=== PATIENT | female | born 1945 | race Caucasian/White ===

== ENCOUNTER 2018-05-07 07:01 | Inpatient (IN) | payer MEDICARE ==
[~2018-05-07] VITALS: Ht 165.1 cm; Wt 68.9 kg
[~2018-05-07 07:01] MED LIST: ADVAIR DISK1 INH; AMITRIPTYLIN100 MG PO; AMLODIPINE5 MG PO; ASPIRIN LOW DOS81 M2 PO; ATORVASTATIN CA20 MG PO; BACTRIM DS1 TAB PO; BUSPIRONE10 MG PO; CIPROFLOXACN250 MG PO; COLACE100 MG PO; DILAUDID 2MG2 MG/TA1 PO; FLORASTOR250 M1 PO; GABAPENTIN100 MG PO; HYDROCO/APAP1 TA9 PO; LIPITOR20 MG PO; LISI20TA5 PO; LISINOPRIL10 M1 PO; LISINOPRIL10 MG PO; LISINOPRIL20 M1 PO; MACROBID100 MG PO; NITROFUR MAC50 MG PO; NYSTATIN100000 M1 PO; NYSTATIN100000 M4 TOP; OMEPRAZOLE20 MG PO; ONE-A-DAY PO; PERCOCET 5/321 COMBO PO; PROAIR HFA IN; PROBIOTI3 PO; PROZAC10 MG PO; SPIRIVA IN; SPIRONOLACT25 MG PO; TAMSULOSIN0.4 MG PO; TIZANIDINE4 MG PO; XANAX XR0.5 MG PO; ZESTRIL10 MG PO
[2018-05-07 07:29] LABS: HEMATOCRIT 42.4 % (37.0-47.0); HEMOGLOBIN 13.8 g/dl (12.0-16.0); IMMATURE GRANULOCYTES 0.3 % (0.0-1.0); MEAN CELL VOLUME 89.1 fL CALC (80.0-100.0); MEAN CORPUSCULAR HGB CONC 32.5 g/L CALC (32.0-36.0); NEUT# 3.54 thou/uL (2.00-7.15); RED BLOOD COUNT 4.76 mill/uL (4.20-5.60); RED CELL DISTRI WIDTH 13.9 % (11.5-15.5)
[2018-05-07 07:44] LABS: ALBUMIN 3.6 g/dL (3.2-5.0); ALKALINE PHOSPHATASE 89 u/l (38-126); ANION GAP 10 (6-22 (CALC)); BILIRUBIN, TOTAL 0.5 mg/dL (0.0-1.4); BUN 15 mg/dL (8-23); BUN/CREATININE RATIO 16 (12-20 (CALC)); CARBON DIOXIDE 24 mmol/l (22-30); CHLORIDE 102 mmol/l (95-108); CREATININE 0.9 mg/dL (0.5-1.0); GFR > 60 ML/MIN (>=60 (CALC)); GFR FOR AFR.AMER. > 60 ML/MIN (>=60 (CALC)); POTASSIUM 4.3 mmol/l (3.5-5.1); SGOT/AST 19 u/l (9-36); SGPT/ALT 26 u/l (11-66); SODIUM 131 mmol/l (137-146); TOTAL PROTEIN 6.9 g/dL (6.3-8.2)
[2018-05-07 07:56] LABS: ACT PARTIAL THROMBO TIME 25.5 SECONDS (20.0-32.5)
[2018-05-07] MEDS ORDERED: AMLODIPINE5 MG PO (08:01)
[2018-05-07] MEDS ORDERED: FUROSEMIDE20 MG PO (08:01)
[2018-05-07 13:07] VITALS: BP 126/59
[2018-05-07 15:22] VITALS: BP 101/55
[2018-05-07 19:00] VITALS: BP 114/60; BP 159/91
[2018-05-08] VITALS (13 sets, daily range): BP systolic 104–152; BP diastolic 42–62
[2018-05-08 03:54] LABS: URINE BILIRUBIN - DIPSTICK NEGATIVE (NEGATIVE); URINE BLOOD DIPSTICK SMALL (NEGATIVE); URINE CLARITY TURBID; URINE COLOR YELLOW; URINE GLUCOSE - DIPSTICK NEGATIVE (NEGATIVE); URINE KETONE NEGATIVE (NEGATIVE); URINE LEUK ESTERASE MODERATE (NEGATIVE); URINE NITRITE - DIPSTICK POSITIVE (Negative); URINE PROTEIN - DIPSTICK NEGATIVE (NEG-TRACE); URINE SPECIFIC GRAVITY 1.015; URINE UROBILINOGEN - DIPSTICK 0.2 E.U./dL (0.2)
[2018-05-08 03:59] LABS: BARBITURATES NEGATIVE (NEGATIVE); COCAINE NEGATIVE (NEGATIVE); METHADONE NEGATIVE (NEGATIVE); OXCYCODONE NEGATIVE (NEGATIVE); TETRAHYDROCANNABIONOL NEGATIVE (NEGATIVE); TRICYLIC ANTIDEPRESSANTS NEGATIVE (NEGATIVE)
[2018-05-08 04:00] LABS: URINE SQUAMOUS EPITHELIAL CELL FEW EPI/hpf (0-FEW); URINE WBC >100 WBC/hpf (0-5)
[2018-05-08 04:01] LABS: URINE BACTERIA MODERATE hpf
[2018-05-08 05:09] LABS: HEMATOCRIT 35.3 % (37.0-47.0); HEMOGLOBIN 11.3 g/dl (12.0-16.0); IMMATURE GRANULOCYTES 0.4 % (0.0-1.0); MEAN CELL VOLUME 91.7 fL CALC (80.0-100.0); MEAN CORPUSCULAR HGB 29.4 pG CALC (26.0-32.0); NEUT# 4.83 thou/uL (2.00-7.15); RED BLOOD COUNT 3.85 mill/uL (4.20-5.60)
[2018-05-08 05:23] LABS: ANION GAP 8 (6-22 (CALC)); BUN 15 mg/dL (8-23); BUN/CREATININE RATIO 17 (12-20 (CALC)); CARBON DIOXIDE 26 mmol/l (22-30); CHLORIDE 99 mmol/l (95-108); CREATININE 0.9 mg/dL (0.5-1.0); GFR > 60 ML/MIN (>=60 (CALC)); GFR FOR AFR.AMER. > 60 ML/MIN (>=60 (CALC)); MAGNESIUM 1.8 mg/dL (1.6-2.3); POTASSIUM 4.5 mmol/l (3.5-5.1); SODIUM 128 mmol/l (137-146)
[2018-05-09 03:54] VITALS: BP 104/49
[2018-05-09 05:31] LABS: HEMATOCRIT 29.5 % (37.0-47.0); MEAN CELL VOLUME 92.8 fL CALC (80.0-100.0); MEAN CORPUSCULAR HGB 28.9 pG CALC (26.0-32.0); MEAN CORPUSCULAR HGB CONC 31.2 g/L CALC (32.0-36.0); RED BLOOD COUNT 3.18 mill/uL (4.20-5.60); RED CELL DISTRI WIDTH 13.9 % (11.5-15.5)
[2018-05-09 05:39] LABS: HEMOGLOBIN 9.2 g/dl (12.0-16.0)
[2018-05-09 05:43] LABS: ANION GAP 9 (6-22 (CALC)); BUN 11 mg/dL (8-23); BUN/CREATININE RATIO 14 (12-20 (CALC)); CARBON DIOXIDE 26 mmol/l (22-30); CHLORIDE 99 mmol/l (95-108); CREATININE 0.8 mg/dL (0.5-1.0); GFR > 60 ML/MIN (>=60 (CALC)); GFR FOR AFR.AMER. > 60 ML/MIN (>=60 (CALC)); MAGNESIUM 1.6 mg/dL (1.6-2.3); POTASSIUM 4.6 mmol/l (3.5-5.1); SODIUM 129 mmol/l (137-146)
[2018-05-09 07:48] VITALS: BP 142/60
[2018-05-09 12:00] VITALS: BP 147/71
[2018-05-09 15:57] VITALS: BP 129/69
[2018-05-09 19:00] VITALS: BP 116/65
[2018-05-09 23:54] VITALS: BP 112/56
[2018-05-10 04:41] VITALS: BP 134/71
[2018-05-10 06:12] LABS: HEMATOCRIT 26.8 % (37.0-47.0); HEMOGLOBIN 8.5 g/dl (12.0-16.0); MEAN CELL VOLUME 92.4 fL CALC (80.0-100.0); MEAN CORPUSCULAR HGB 29.3 pG CALC (26.0-32.0); MEAN CORPUSCULAR HGB CONC 31.7 g/L CALC (32.0-36.0); RED BLOOD COUNT 2.9 mill/uL (4.20-5.60); RED CELL DISTRI WIDTH 14.1 % (11.5-15.5)
[2018-05-10 06:35] LABS: ANION GAP 7 (6-22 (CALC)); BUN 8 mg/dL (8-23); BUN/CREATININE RATIO 9 (12-20 (CALC)); CARBON DIOXIDE 29 mmol/l (22-30); CHLORIDE 100 mmol/l (95-108); CREATININE 0.9 mg/dL (0.5-1.0); GFR > 60 ML/MIN (>=60 (CALC)); GFR FOR AFR.AMER. > 60 ML/MIN (>=60 (CALC)); MAGNESIUM 1.8 mg/dL (1.6-2.3); POTASSIUM 4.7 mmol/l (3.5-5.1); SODIUM 131 mmol/l (137-146)
[2018-05-10 09:10] VITALS: BP 108/66
[2018-05-10 10:48] VITALS: BP 100/60
[2018-05-10 14:50] VITALS: BP 151/80
[2018-05-10 19:45] VITALS: BP 152/64
[2018-05-11 00:37] VITALS: BP 125/60
[2018-05-11 03:45] VITALS: BP 144/65
[2018-05-11 06:02] LABS: HEMOGLOBIN 9.2 g/dl (12.0-16.0); MEAN CELL VOLUME 92.7 fL CALC (80.0-100.0); MEAN CORPUSCULAR HGB 29.4 pG CALC (26.0-32.0); MEAN CORPUSCULAR HGB CONC 31.7 g/L CALC (32.0-36.0); RED BLOOD COUNT 3.13 mill/uL (4.20-5.60); RED CELL DISTRI WIDTH 14.5 % (11.5-15.5)
[2018-05-11 06:21] LABS: ANION GAP 9 (6-22 (CALC)); BUN 8 mg/dL (8-23); BUN/CREATININE RATIO 10 (12-20 (CALC)); CARBON DIOXIDE 31 mmol/l (22-30); CHLORIDE 99 mmol/l (95-108); CREATININE 0.8 mg/dL (0.5-1.0); GFR > 60 ML/MIN (>=60 (CALC)); GFR FOR AFR.AMER. > 60 ML/MIN (>=60 (CALC)); POTASSIUM 4.6 mmol/l (3.5-5.1); SODIUM 134 mmol/l (137-146)
[2018-05-11] MEDS ORDERED: IPRATROPIU0.5 MG/3 M IN (08:23)
[2018-05-11] MEDS ORDERED: CIPROFLOXACIN500 M1 PO (08:23)
[2018-05-11] MEDS ORDERED: GLYCOLAX3350 N1 PO (08:23)
[2018-05-11] MEDS ORDERED: ASPIRIN EC325 MG PO (08:23)
[2018-05-11] MEDS ORDERED: SURFAK240 MG/CAP PO (08:23)
[2018-05-11] MEDS ORDERED: PERCOCET 10/31 COMBO PO (08:23)
[2018-05-11 09:23] VITALS: BP 150/65
[2018-05-11 11:09] VITALS: BP 131/69
== END 2018-05-11 13:18 | DRG 481 ==
LOC: ED 07:01 → ED-I 07:54 → ED 07:54 → ED-I 09:00 → ED 10:13 → MS2 10:14
PROVIDERS: Emergency Medicine; Nurse Practitioner Family; ADMIT Internal Medicine; ATTEND Internal Medicine
PROC: 0T9B70Z Drainage of Bladder with Drainage Device, Via Natural or Artificial Opening (ICD-10-PCS; principal; 2018-05-07)
PROC: 0QS606Z Reposition Right Upper Femur with Intramedullary Internal Fixation Device, Open Approach (ICD-10-PCS; 2018-05-08)
DX: S72.141A Displaced intertrochanteric fracture of right femur, initial encounter for closed fracture (principal); E87.1 Hypo-osmolality and hyponatremia; N39.0 Urinary tract infection, site not specified; J44.9 Chronic obstructive pulmonary disease, unspecified; K21.9 Gastro-esophageal reflux disease without esophagitis; F17.210 Nicotine dependence, cigarettes, uncomplicated; I73.9 Peripheral vascular disease, unspecified; I12.9 Hypertensive chronic kidney disease with stage 1 through stage 4 chronic kidney disease, or unspecified chronic kidney disease; N18.3 Chronic kidney disease, stage 3 (moderate); N31.9 Neuromuscular dysfunction of bladder, unspecified; R32 Unspecified urinary incontinence; K59.00 Constipation, unspecified; D64.9 Anemia, unspecified; R00.1 Bradycardia, unspecified; R15.9 Full incontinence of feces; M81.0 Age-related osteoporosis without current pathological fracture; B96.1 Klebsiella pneumoniae [K. pneumoniae] as the cause of diseases classified elsewhere; W18.39XA Other fall on same level, initial encounter; Y92.009 Unspecified place in unspecified non-institutional (private) residence as the place of occurrence of the external cause; Z72.89 Other problems related to lifestyle; Z91.81 History of falling; Z87.440 Personal history of urinary (tract) infections
CPT/HCPCS: J1756; S0164

== ENCOUNTER 2019-12-20 | Emergency (ER) | payer MEDICARE ==
[~2019-12-20] MED LIST changes: +ASPIRIN EC325 MG PO; +CIPROFLOXACIN500 M1 PO; +FUROSEMIDE20 MG PO; +GLYCOLAX3350 N1 PO; +IPRATROPIU0.5 MG/3 M IN; +NORVASC5 M1 PO; +PERCOCET 10/31 COMBO PO; +SURFAK240 MG/CAP PO
[2019-12-20 07:17] LABS: HEMATOCRIT 45.3 % (37.0-47.0); IMMATURE GRANULOCYTES 0.3 % (0.0-5.0); MEAN CELL VOLUME 90.1 fL CALC (80.0-100.0); MEAN CORPUSCULAR HGB 29.8 pG CALC (26.0-32.0); MEAN CORPUSCULAR HGB CONC 33.1 g/L CALC (32.0-36.0); NEUT# 5.66 thou/uL (2.00-7.15); RED BLOOD COUNT 5.03 mill/uL (4.20-5.60); RED CELL DISTRI WIDTH 12.5 % (11.5-15.5)
[2019-12-20 07:36] LABS: ALKALINE PHOSPHATASE 72 u/l (38-126); BILIRUBIN, TOTAL 0.6 mg/dL (0.0-1.4); BUN 13 mg/dL (8-23); BUN/CREATININE RATIO 14 (12-20 (CALC)); CARBON DIOXIDE 28 mmol/l (22-30); CHLORIDE 88 mmol/l (95-108); GFR 54 ML/MIN (>=60 (CALC)); GFR FOR AFR.AMER. > 60 ML/MIN (>=60 (CALC)); POTASSIUM 3.7 mmol/l (3.5-5.1); SGOT/AST 31 u/l (9-36); TOTAL PROTEIN 8.2 g/dL (6.3-8.2)
[2019-12-20] MEDS ORDERED: HYDROCHLOROT25 MG PO (07:38)
[2019-12-20] MEDS ORDERED: SLEEP MEDICATION (07:39)
[2019-12-20 07:48] LABS: MYOGLOBIN 97 ng/mL (0 - 62)
[2019-12-20 07:51] LABS: ALBUMIN 4.6 g/dL (3.2-5.0); ANION GAP 15 (6-22 (CALC)); SODIUM 127 mmol/l (137-146)
== END 2019-12-20 09:26 ==
PROVIDERS: Emergency Medicine
DX: I63.9 Cerebral infarction, unspecified (principal); R47.1 Dysarthria and anarthria; R29.810 Facial weakness; R29.703 NIHSS score 3; S80.812A Abrasion, left lower leg, initial encounter; J44.9 Chronic obstructive pulmonary disease, unspecified; I10 Essential (primary) hypertension; F17.210 Nicotine dependence, cigarettes, uncomplicated; W10.9XXA Fall (on) (from) unspecified stairs and steps, initial encounter
CPT/HCPCS: Q9967

== ENCOUNTER 2020-01-21 19:23 | Inpatient (IN) | payer MEDICARE ==
[~2020-01-21] VITALS: Ht 165.1 cm; Wt 68.3 kg
[~2020-01-21 19:23] MED LIST changes: +HYDROCHLOROT25 MG PO; +SLEEP MEDICATION
--- NOTE | 2020-01-21 19:44 | NUR ---
AMBULATED TO ROOM
--- NOTE | 2020-01-21 20:00 | NUR ---
Reassessment of patient completed. No distress noted. Call fernandez within reach. Denies any needs at this time. Will continue to monitor.
--- NOTE | 2020-01-21 20:25 | NUR ---
Pt to radiology via stretcher
[2020-01-21 20:33] LABS: HEMATOCRIT 39.8 % (37.0-47.0); HEMOGLOBIN 13.4 g/dl (12.0-16.0); IMMATURE GRANULOCYTES 0.5 % (0.0-5.0); MEAN CELL VOLUME 88.1 fL CALC (80.0-100.0); MEAN CORPUSCULAR HGB 29.6 pG CALC (26.0-32.0); MEAN CORPUSCULAR HGB CONC 33.7 g/L CALC (32.0-36.0); NEUT# 6.29 thou/uL (2.00-7.15); RED BLOOD COUNT 4.52 mill/uL (4.20-5.60); RED CELL DISTRI WIDTH 13.1 % (11.5-15.5)
--- NOTE | 2020-01-21 20:39 | NUR ---
Pt returned to room # 4 from radiology via stretcher. No distress noted. Explained wait time for results. Showed understanding. Call fernandez within reach. Denies any needs at this time.
[2020-01-21 20:58] LABS: ALBUMIN 4.1 g/dL (3.2-5.0); BILIRUBIN, TOTAL 0.4 mg/dL (0.0-1.4); CREATININE 1.1 mg/dL (0.5-1.0); POTASSIUM 3.6 mmol/l (3.5-5.1); TOTAL PROTEIN 6.9 g/dL (6.3-8.2)
[2020-01-21] MEDS ORDERED: ALENDRONATE SOD70 MG PO (21:07)
[2020-01-21] MEDS ORDERED: ATORVASTATIN CA10 MG PO (21:07)
[2020-01-21] MEDS ORDERED: LISINOPRIL40 MG PO (21:08)
[2020-01-21] MEDS ORDERED: CLOPIDOGREL75 MG PO (21:08)
[2020-01-21] MEDS ORDERED: DESYREL50 MG PO (21:09)
--- NOTE | 2020-01-21 21:10 | NUR ---
Pt resting on stretcher with eyes open. Advised of need for urine specimen. Showed understanding. Call fernandez within reach
--- NOTE | 2020-01-21 21:15 | NUR ---
Family back to bedside
--- NOTE | 2020-01-21 22:00 | NUR ---
Bedside report given to BRIDGER Pretty. Care relinquished at this time.
--- NOTE | 2020-01-21 22:03 | NUR ---
to bsc with no results
--- NOTE | 2020-01-21 23:18 | NUR ---
CALLED MS FOR REPORT. TO CALL BACK FOR REPORT
--- NOTE | 2020-01-21 23:41 | NUR ---
CALLED FOR REPORT-TO CALL BACK
--- NOTE | 2020-01-21 23:48 | NUR ---
TO MS VIA W/C
--- NOTE | 2020-01-22 | NUR ---
PT ARRIVED TO THE FLOOR VIA WC ACCOMPANIED BY ED NURSE. PT APPEARS TO BE IN STABLE CONDITION UPON ARRIVING TO THE MED SURG UNIT. AIDE IS IN W/PT AT THIS TIME OBTAINING V/S AND ORIENTING PT TO ROOM. WILL FOLLOW-UP WITH ADMISSION QUESITONS AND ASSESSMENT.
[2020-01-22 00:04] VITALS: BP 157/72
--- NOTE | 2020-01-22 00:30 | NUR ---
PT ASSESSMENT AND ADMISSION COMPLETED AT THIS TIME. PT PROVIDED EXTRA PILLOW AND ICEWATER, DENIES NEED FOR SNACK OR ANY OTHER COMFORT MEASURE OR NEEDS. JEREMIAH PAIN AT THIS TIME. PT DOES HAVE BRUISING AND EDEMA TO L.EYE AREA. SHE ALSO REPORTS PREVIOUS "MINI STROKE ABOUT A MONTH AGO" SHE REPORTS THAT SHE WAS HERE AT [facility] AND SENT TO [facility] FOR FURTHER TREATMENT, BUT THAT SHE HAS FULLY RECOVERED AND DOES NOT NOTICE ANY RESIDUAL AFFECTS OF THE STROKE. UPON ASSESSMENT AUDITOR INTERNAL ARE EQUAL, NEURO'S INTACT, NO VISIBLE WEAKNESS TO EXTREMETIES AND FACIAL FEATURES ARE SYMETRIC IN MOVEMENT. PT LOCX4. SHE DOES REPORT BEING INCONTINENT OF URINE AND STOOL AND SAYS THAT SHE WEARS A BREIF AND THAT HER DAUGHTER IS BRINGING HER MORE IN THE MORNING. BED ALARM PLACED ON FOR SAFETY MEASURES AND DOOR LEFT OPEN.
--- NOTE | 2020-01-22 03:00 | NUR ---
PT UP TO BSC AND BACK TO BED. UA COLLECTED AND TAKEN TO LAB BY AZIZA. PT DENIES ANY NEEDS, BED ALARM PLACED ON.
[2020-01-22 03:08] LABS: URINE BILIRUBIN - DIPSTICK NEGATIVE (NEGATIVE); URINE BLOOD DIPSTICK NEGATIVE (NEGATIVE); URINE COLOR YELLOW; URINE GLUCOSE - DIPSTICK NEGATIVE (NEGATIVE); URINE KETONE NEGATIVE (NEGATIVE); URINE LEUK ESTERASE NEGATIVE (NEGATIVE); URINE NITRITE - DIPSTICK NEGATIVE (Negative); URINE PROTEIN - DIPSTICK NEGATIVE (NEG-TRACE); URINE UROBILINOGEN - DIPSTICK 0.2 E.U./dL (0.2)
[2020-01-22 03:34] LABS: BARBITURATES NEGATIVE (NEGATIVE); COCAINE NEGATIVE (NEGATIVE); METHADONE NEGATIVE (NEGATIVE); OXCYCODONE NEGATIVE (NEGATIVE); TETRAHYDROCANNABIONOL NEGATIVE (NEGATIVE); TRICYLIC ANTIDEPRESSANTS NEGATIVE (NEGATIVE)
[2020-01-22 04:00] VITALS: BP 122/63
[2020-01-22 05:40] LABS: ANION GAP 12 (6-22 (CALC)); BUN 14 mg/dL (8-23); BUN/CREATININE RATIO 16 (12-20 (CALC)); CARBON DIOXIDE 26 mmol/l (22-30); CHLORIDE 88 mmol/l (95-108); CREATININE 0.9 mg/dL (0.5-1.0); GFR > 60 ML/MIN (>=60 (CALC)); GFR FOR AFR.AMER. > 60 ML/MIN (>=60 (CALC)); POTASSIUM 3.9 mmol/l (3.5-5.1); SODIUM 122 mmol/l (137-146)
--- NOTE | 2020-01-22 06:00 | NUR ---
IVF REPLENISHED. PT WAS SLEEPING, REPORTS FEELING "TIRED." PT DENIES ANY OTHER NEEDS AT THIS TIME. CALL LIGHT IN REACH AND PT ENCOURAGED TO CALL.
[2020-01-22 08:00] VITALS: BP 151/70
--- NOTE | 2020-01-22 09:00 | NUR ---
PT SEEN AWAKE, ALERT, ORIENTED X 3. LEFT SIDE OF FACE SEEN TO BE ECCHYMOTIC PER RECENT FALL. LUNGS CLEAR, RA. NO COMPLAINT OF PAIN OR OTHERWISE. PT TO BSC WITH ASSIST NEEDED.
--- NOTE | 2020-01-22 13:00 | NUR ---
PT DENIES SHAKINESS SEEN IN ALCOHOL WITHDRAWAL, RESTS IN THE BED IN NO ACUTE DISTRESS. PT HAS CALLED APPROPRIATELY FOR BSC.
[2020-01-22 15:00] VITALS: BP 121/59
--- NOTE | 2020-01-22 16:43 | NUR ---
PT REMAINS AT REST IN THE BED, NO CHANGE IN STATUS. PT DENIES ANY SHAKINESS OR EVIDENCE OF ETOH WITHDRAWAL, SAYS THAT SHE IS BORED. BANANA BAG CONTINUES INFUSING ORDERED.
--- NOTE | 2020-01-22 18:55 | NUR ---
REPORT RECEIVED FROM BRIDGER BARRAZA. PT RESTING IN BED. NO S/S OF DISTRESS AT THIS TIME. WILL CONTINUE TO MONITOR.
[2020-01-22 19:20] VITALS: BP 147/68
--- NOTE | 2020-01-22 22:02 | NUR ---
PT RESTING IN BED. ALERT AND ORIENTED. RESPIRATIONS EVEN AND UNLABORED. WHEEZES NOTED THROUGH OUT LUNGS. PEDAL PULSES STRONG. PT DENIES ANY NEEDS AT THIS TIME. SAFETY PRECAUTIONS IN PLACE. WILL CONTINUE TO MONITOR.
--- NOTE | 2020-01-23 | NUR ---
PT RESTING IN BED. NO S/S OF DISTRESS AT THIS TIME. WILL CONTINUE TO MONITOR.
[2020-01-23 00:14] VITALS: BP 143/86
--- NOTE | 2020-01-23 04:09 | NUR ---
PT RESTING IN BED NO S/S OF DISTRESS AT THIS TIME
[2020-01-23 04:10] VITALS: BP 113/75
[2020-01-23 05:22] LABS: HEMATOCRIT 35.1 % (37.0-47.0); HEMOGLOBIN 11.6 g/dl (12.0-16.0); MEAN CELL VOLUME 91.2 fL CALC (80.0-100.0); MEAN CORPUSCULAR HGB 30.1 pG CALC (26.0-32.0); RED BLOOD COUNT 3.85 mill/uL (4.20-5.60); RED CELL DISTRI WIDTH 13.2 % (11.5-15.5)
[2020-01-23 05:44] LABS: BUN 9 mg/dL (8-23); BUN/CREATININE RATIO 12 (12-20 (CALC)); CARBON DIOXIDE 24 mmol/l (22-30); CREATININE 0.8 mg/dL (0.5-1.0); GFR > 60 ML/MIN (>=60 (CALC)); GFR FOR AFR.AMER. > 60 ML/MIN (>=60 (CALC)); MAGNESIUM 1.7 mg/dL (1.6-2.3); POTASSIUM 3.7 mmol/l (3.5-5.1); SODIUM 128 mmol/l (137-146)
[2020-01-23 05:45] LABS: ALBUMIN 2.9 g/dL (3.2-5.0); ANION GAP 6 (6-22 (CALC)); CHLORIDE 102 mmol/l (95-108)
[2020-01-23 07:51] VITALS: BP 155/73
--- NOTE | 2020-01-23 09:00 | NUR ---
PT AWAKE, ALERT, ORIENTED X 3. LUNGS CLEAR, RA. PT CALLS TO USE BSC APPROPRIATELY. NO EVIDENCE OF WITHDRAWAL SYMPTOMS. LUNGS CLEAR, RA.
[2020-01-23 11:45] VITALS: BP 156/65
--- NOTE | 2020-01-23 13:00 | NUR ---
PT CONTINUES TO CALL APPROPRIATELY TO USE BSC, SEEN TO TRANSFER WITH STANDBY ASSIST. PT SEEN BY DR RESTREPO, ANTICIPATES DISCHARGE TOMORROW.
[2020-01-23 16:09] VITALS: BP 134/82
--- NOTE | 2020-01-23 16:31 | NUR ---
PT RESTING IN THE BED, NO DISTRESS NOTED.
[2020-01-23 19:03] VITALS: BP 142/62
--- NOTE | 2020-01-23 19:05 | NUR ---
REPORT FROM CHRISTI RN. PT SITTING UP IN BED. ALERT AND ORIENTED. PT DENIES ANY PAIN OR DISCOMFORT. NO APPARENT DISTRESS NOTED. DISCUSSED POC. PT VERBALIZED UNDERSTANDING. MILKING MACHINE TECHNICIAN IN PLACE. IV SITE APPEARS HEALTHY. CALL LIGHT WITHIN REACH. WILL CONTINUE TO MONITOR.
--- NOTE | 2020-01-23 23:11 | NUR ---
PT RESTING IN BED WITH EYES CLOSED. NO APPARENT DISTRESS NOTED. IV FLUIDS INFUSING WITHOUT DIFFICULTY. CALL LIGHT WITHIN REACH. WILL CONTINUE TO MONITOR.
[2020-01-24 00:08] VITALS: BP 142/70
--- NOTE | 2020-01-24 02:49 | NUR ---
ASSISTED PT UP TO BS. PT VOIDED WITHOUT DIFFICULTY. PT DENIES ANY PAIN OR DISCOMFORT. ASSISTED BACK TO BED. CALL LIGHT WITHIN REACH. WILL CONTINUE TO MONITOR.
[2020-01-24 04:27] VITALS: BP 148/69
[2020-01-24 05:43] LABS: ALBUMIN 2.9 g/dL (3.2-5.0); BUN 10 mg/dL (8-23); CARBON DIOXIDE 25 mmol/l (22-30); CHLORIDE 103 mmol/l (95-108); CREATININE 0.7 mg/dL (0.5-1.0); GFR > 60 ML/MIN (>=60 (CALC)); GFR FOR AFR.AMER. > 60 ML/MIN (>=60 (CALC)); POTASSIUM 3.6 mmol/l (3.5-5.1); SODIUM 132 mmol/l (137-146)
[2020-01-24 07:59] VITALS: BP 167/70
--- NOTE | 2020-01-24 08:00 | NUR ---
PATIENT A/OX4, NO C/O PAIN, NO S/S RESP DISTRESS, PATIENT ON ROOM AIR, PATIENT SKIN IS INTACT, PATIENT HAS BRUISE TO ENTIRE LEFT SIDE, NEURO ASSESSMENT UNREMARKABLE, PATIENT CIWA 0, PATIENT HEART RHYTHM SINUS LUZMARIA, WILL CONTINUE TO MONITOR PATIENT, CALL LIGHT WITHIN REACH
[2020-01-24] MEDS ORDERED: LIBRIUM25 M1 PO (10:08)
[2020-01-24] MEDS ORDERED: COZAAR100 MG PO (10:08)
[2020-01-24 11:04] VITALS: BP 166/83
--- NOTE | 2020-01-24 11:49 | NUR ---
PATIENT A/OX4, NO S/S RESP DISTRESS, PATIENT ON ROOM AIR, NO C/O PAIN, PATIENT SKIN IS INTACT, BRUISE ON ENTIRE LEFT SIDE OF FACE S/P FALL AT HOME, PATIENT IS AN STAND BY ASSIST TO RESTROOM, PATIENT LAST BOWEL MOVEMENT IS 01/23/20, PATIENT NEURO ASSESSMENT UNREMARKABLE, CIWA IS 0, PATIENT DISCHARGED TO HOME, EDUCATED PATIENT ABOUT DISCHARGED INSTRUCTIONS PATIENT STATED SHE UNDERSTOOD TEACHING, PATIENT PROVIDED PRINTED HANDOUTS ABOUT NEW PRESCRITIONS AND DC INSTRUCTIONS, DC PATIENT IV, REMOVED PATIENT IV, PATIENT WAITING ON TRANSPORTATION
[2020-01-24 12:10] VITALS: BP 156/80
--- NOTE | 2020-01-24 12:28 | NUR ---
PATIENT A/OX4, NO S/S RESP DISTRESS, PATIENT ON ROOM AIR, PATIENT HAVE NO C/O PAIN, ALL PRESCRIPTIONS GIVEN TO PATIENT AND DC HANDOUTS GIVEN TO PATIENT, STAFF ASSISTED PATIENT OFF FLOOR VIA WHEELCHAIR, PATIENT ACCOMPANIED BY FAMILY MEMBER
== END 2020-01-24 12:20 | disposition home or self-care (01) | DRG 641 ==
LOC: ED 19:23 → ED-I 22:53 → ED 23:11 → MS2 23:12
PROVIDERS: Family Medicine; Nurse Practitioner Family; ADMIT Internal Medicine; ATTEND Internal Medicine
DX: E87.1 Hypo-osmolality and hyponatremia (principal); T50.2X5A Adverse effect of carbonic-anhydrase inhibitors, benzothiadiazides and other diuretics, initial encounter; F10.10 Alcohol abuse, uncomplicated; I12.9 Hypertensive chronic kidney disease with stage 1 through stage 4 chronic kidney disease, or unspecified chronic kidney disease; N18.3 Chronic kidney disease, stage 3 (moderate); S00.12XA Contusion of left eyelid and periocular area, initial encounter; S50.02XA Contusion of left elbow, initial encounter; J44.9 Chronic obstructive pulmonary disease, unspecified; I73.9 Peripheral vascular disease, unspecified; K21.9 Gastro-esophageal reflux disease without esophagitis; F17.210 Nicotine dependence, cigarettes, uncomplicated; W07.XXXA Fall from chair, initial encounter; Y92.009 Unspecified place in unspecified non-institutional (private) residence as the place of occurrence of the external cause; Z79.82 Long term (current) use of aspirin; Z87.440 Personal history of urinary (tract) infections; Z79.02 Long term (current) use of antithrombotics/antiplatelets

== ENCOUNTER 2021-06-19 16:17 | Inpatient (IN) | payer MEDICARE ==
[~2021-06-19] VITALS: Ht 165.1 cm; Wt 59.6 kg
[2021-06-19] VITALS (8 sets, daily range): BP systolic 134–161; BP diastolic 55–76
[~2021-06-19 16:17] MED LIST changes: +ALENDRONATE SOD70 MG PO; +ATORVASTATIN CA10 MG PO; +CLOPIDOGREL75 MG PO; +COZAAR100 MG PO; +DESYREL50 MG PO; +LIBRIUM25 M1 PO; +LISINOPRIL40 MG PO
--- NOTE | 2021-06-19 16:18 | NUR ---
TO ROOM VIA EMS
[2021-06-19 16:46] LABS: GFR > 60 ML/MIN (>=60 (CALC)); GFR FOR AFR.AMER. > 60 ML/MIN (>=60 (CALC))
[2021-06-19 16:51] LABS: HEMATOCRIT 38.2 % (37.0-47.0); IMMATURE GRANULOCYTES 0.3 % (0.0-5.0); MEAN CELL VOLUME 85.1 fL CALC (80.0-100.0); MEAN CORPUSCULAR HGB 26.7 pG CALC (26.0-32.0); MEAN CORPUSCULAR HGB CONC 31.4 g/dL CAL (32.0-36.0); NEUT# 1.56 thou/uL (2.00-7.15); RED BLOOD COUNT 4.49 mill/uL (4.20-5.60); RED CELL DISTRI WIDTH 13.6 % (11.5-15.5)
[2021-06-19 17:03] LABS: ALKALINE PHOSPHATASE 72 u/l (38-126); ANION GAP 15 (6-22 (CALC)); BILIRUBIN, TOTAL 0.4 mg/dL (0.0-1.4); BUN 15 mg/dL (8-23); BUN/CREATININE RATIO 18 (12-20 (CALC)); CARBON DIOXIDE 22 mmol/l (22-30); CHLORIDE 93 mmol/l (95-108); CREATININE 0.8 mg/dL (0.5-1.0); GFR > 60 ML/MIN (>=60 (CALC)); GFR FOR AFR.AMER. > 60 ML/MIN (>=60 (CALC)); SGOT/AST 40 u/l (9-36); SODIUM 126 mmol/l (137-146); TOTAL PROTEIN 6.9 g/dL (6.3-8.2)
[2021-06-19 17:04] LABS: ALBUMIN 3.6 g/dL (3.2-5.0)
[2021-06-19 17:07] LABS: C-REACTIVE PROTEIN 2.6 mg/dL (0-0.9)
--- NOTE | 2021-06-19 17:30 | NUR ---
SITTING IN HIGH FOWLERS, RESPS LABORED ON O2 VIA NC. DENIES NEEDS AT THIS TIME.
--- NOTE | 2021-06-19 18:55 | NUR ---
REPORT GIVEN TO WARNER SPARKS.
--- NOTE | 2021-06-19 19:00 | NUR ---
Reassessment of patient completed. No distress noted.
--- NOTE | 2021-06-19 20:31 | NUR ---
REPORT CALLED TO RODRIGO IN ICU
--- NOTE | 2021-06-19 20:35 | NUR ---
REPORT CALLED FROM WARNER IN ED
--- NOTE | 2021-06-19 21:15 | NUR ---
PT ARRIVED TO ICU 3, NO S/S OF DISTRESS NOTED.
[2021-06-20] VITALS (14 sets, daily range): BP systolic 124–169; BP diastolic 57–105
--- NOTE | 2021-06-20 02:00 | NUR ---
PT APPEARS TO BE SLEEPING, PUREWICK, AND SCDS IN PLACE. IVF INFUSING
[2021-06-20 06:27] LABS: ALKALINE PHOSPHATASE 60 u/l (38-126); BUN 12 mg/dL (8-23); BUN/CREATININE RATIO 19 (12-20 (CALC)); C-REACTIVE PROTEIN 2.7 mg/dL (0-0.9); CARBON DIOXIDE 22 mmol/l (22-30); CHLORIDE 102 mmol/l (95-108); CREATININE 0.6 mg/dL (0.5-1.0); GFR > 60 ML/MIN (>=60 (CALC)); GFR FOR AFR.AMER. > 60 ML/MIN (>=60 (CALC)); SGOT/AST 32 u/l (9-36); SODIUM 132 mmol/l (137-146); TOTAL PROTEIN 5.8 g/dL (6.3-8.2)
[2021-06-20 06:57] LABS: HEMATOCRIT 36.5 % (37.0-47.0); HEMOGLOBIN 11.6 g/dl (12.0-16.0); IMMATURE GRANULOCYTES 1.1 % (0.0-5.0); MEAN CELL VOLUME 85.3 fL CALC (80.0-100.0); MEAN CORPUSCULAR HGB 27.1 pG CALC (26.0-32.0); MEAN CORPUSCULAR HGB CONC 31.8 g/dL CAL (32.0-36.0); NEUT# 0.35 thou/uL (2.00-7.15); RED BLOOD COUNT 4.28 mill/uL (4.20-5.60); RED CELL DISTRI WIDTH 13.8 % (11.5-15.5)
[2021-06-20 07:03] LABS: ANION GAP 13 (6-22 (CALC)); BILIRUBIN, TOTAL 0.1 mg/dL (0.0-1.4); POTASSIUM 4.6 mmol/l (3.5-5.1)
--- NOTE | 2021-06-20 08:12 | NUR ---
PT SEEN AWAKE, ALERT, ORIENTED X 3. LUNGS WITH SCATTERED CRACKLES THROUGHOUT, PT USES 3 LPM NC. NO REPORT OF SHORTNESS OF BREATH. PT EATS BREAKFAST AT THIS TIME. MONITOR SHOWS SINUS BRADYCARDIA IN THE MID 50s.
--- NOTE | 2021-06-20 08:25 | NUR ---
PT note Patient is screened for PT intervention and no needs are identified at this time
--- NOTE | 2021-06-20 13:31 | NUR ---
PT WITHOUT CHANGE SHE RESTS IN THE BED. OXYGEN CONTINUES AT 3 LPM, PT SATS IN THE LOW 90s.
--- NOTE | 2021-06-20 15:24 | NUR ---
PT REMAINS AT REST IN THE BED, NO DISTRESS OR COMPLAINTS. OXYGEN REMAINS AT 3 LPM BY NC, SATS SEEN 94%.
--- NOTE | 2021-06-20 17:07 | NUR ---
PT SEEN AT REST IN THE BED, NO COMPLAINTS OR EVIDENCE OF DISTRESS.
--- NOTE | 2021-06-20 20:00 | NUR ---
awake. no acute distress. o2 cont 3 l/m per nc. no resp diff. vehicle monitor technician shows sinus arvind hr 58. #20 lfa & #18 lac saline lock. po fluids taken well. pure wick cath in place. urine lt lotus. bilat scds cont. spoke to pt @ length about prone position but refuses @ present. fall & air/contact precautions cont.
--- NOTE | 2021-06-20 22:00 | NUR ---
eyes closed. no distress. principal engineer shows sinus arvind hr 48.
[2021-06-21] VITALS (9 sets, daily range): BP systolic 135–180; BP diastolic 57–99
--- NOTE | 2021-06-21 00:01 | NUR ---
eyes closed. no distress. packing machine can feeder shows sinus arvind hr 50.
--- NOTE | 2021-06-21 02:00 | NUR ---
eyes closed. resps even & unlabored. no apparent distress.
--- NOTE | 2021-06-21 04:00 | NUR ---
eyes closed. no distress. potline monitor shows sinus brdy hr 46.
--- NOTE | 2021-06-21 05:32 | NUR ---
lab here. blood drawn.
[2021-06-21 05:59] LABS: HEMOGLOBIN 12.7 g/dl (12.0-16.0); IMMATURE GRANULOCYTES 0.5 % (0.0-5.0); MEAN CELL VOLUME 86.5 fL CALC (80.0-100.0); MEAN CORPUSCULAR HGB 26.8 pG CALC (26.0-32.0); NEUT# 2.5 thou/uL (2.00-7.15); RED BLOOD COUNT 4.74 mill/uL (4.20-5.60); RED CELL DISTRI WIDTH 13.7 % (11.5-15.5)
[2021-06-21 06:14] LABS: ALBUMIN 2.8 g/dL (3.2-5.0); ALKALINE PHOSPHATASE 61 u/l (38-126); ANION GAP 11 (6-22 (CALC)); BUN 17 mg/dL (8-23); BUN/CREATININE RATIO 21 (12-20 (CALC)); CARBON DIOXIDE 25 mmol/l (22-30); CHLORIDE 102 mmol/l (95-108); CREATININE 0.8 mg/dL (0.5-1.0); GFR > 60 ML/MIN (>=60 (CALC)); GFR FOR AFR.AMER. > 60 ML/MIN (>=60 (CALC)); POTASSIUM 4.6 mmol/l (3.5-5.1); SGOT/AST 31 u/l (9-36); SODIUM 133 mmol/l (137-146); TOTAL PROTEIN 5.7 g/dL (6.3-8.2)
--- NOTE | 2021-06-21 07:45 | NUR ---
PT SEEN OOB IN CHAIR THIS MORNING PER HALLIE CHI'S ASSIST. LUNGS HAVE SCATTERED CRACKLES THROUGHOUT, USES 3 LPM NC. NO BM X 3 DAYS, WILL OFFER MILK OF MAGNESIA.
[2021-06-21] MEDS ORDERED: COZAAR100 MG PO (09:00)
[2021-06-21] MEDS ORDERED: C 500 (09:04)
[2021-06-21] MEDS ORDERED: VITAMIN D2 (09:07)
[2021-06-21] MEDS ORDERED: IS-ZC 50 50 MG1 TAB (09:09)
--- NOTE | 2021-06-21 13:00 | NUR ---
PT TO BSC WITH ASSIST FROM HALLIE CHI. NO CHANGE IN STATUS, PT WATCHES TV.
--- NOTE | 2021-06-21 15:24 | NUR ---
PT WITHOUT EVIDENCE OF DISTRESS SHE RESTS IN THE BED. ROOM TEMP CHANGED DOWNWARD PER WARM ROOM.
--- NOTE | 2021-06-21 17:55 | NUR ---
PT RESTS IN THE BED WITHOUT COMPLAINT OR DISTRESS. TEMP IN ROOM ADJUSTED FOR HER COMFORT.
--- NOTE | 2021-06-21 20:45 | NUR ---
AWAKE ALERT AND ORIENTED UP TO BSC VOIDED INOCENTE URINE DENIES C/O MONITOR SHOWS SR RATE 60S. VOICES NO C/O
--- NOTE | 2021-06-21 21:25 | NUR ---
PTS CLINICAL SCIENCE LIAISON SHOWS SB RATE 50S AND 40S
--- NOTE | 2021-06-21 22:00 | NUR ---
RESTING IN BED WITH EYES CLOSED IV INFUSING O2 IN USE MONITOR SHOWS SB
--- NOTE | 2021-06-21 23:16 | NUR ---
UP TO BSC WITH 1 ASSIST VOIDING INOCENTE URINE
[2021-06-22] VITALS (9 sets, daily range): BP systolic 132–183; BP diastolic 51–88
--- NOTE | 2021-06-22 | NUR ---
LYING IN BED AWAKE MONITOR SHOW AB RATE 40S DENIES C/O
--- NOTE | 2021-06-22 01:51 | NUR ---
APPEARS TO BE SLEEPING LENS INSERTER SHOWS SB RATE 40S TO 50S
--- NOTE | 2021-06-22 02:09 | NUR ---
ASSISTED PT OOB TO BSC TO VOID RR UP TO 24 SAT DOWN TO 87 QUICK RECOVERY WHEN BACK TO BED
--- NOTE | 2021-06-22 03:51 | NUR ---
APPEARS TO BE SLEEPING JAVA ORACLE DEVELOPER SHOWS AB RATE 40S NO DISTRESS NOTED
--- NOTE | 2021-06-22 05:48 | NUR ---
LAB HERE TO DRAW AM LABS NO CHANGES NOTED MONITOR SHOWS SB O2 IN USE
[2021-06-22 06:09] LABS: HEMOGLOBIN 13.5 g/dl (12.0-16.0); IMMATURE GRANULOCYTES 0.6 % (0.0-5.0); MEAN CELL VOLUME 85.8 fL CALC (80.0-100.0); MEAN CORPUSCULAR HGB 26.3 pG CALC (26.0-32.0); MEAN CORPUSCULAR HGB CONC 30.7 g/dL CAL (32.0-36.0); NEUT# 1.77 thou/uL (2.00-7.15); RED BLOOD COUNT 5.13 mill/uL (4.20-5.60); RED CELL DISTRI WIDTH 13.5 % (11.5-15.5)
[2021-06-22 06:38] LABS: ALBUMIN 3.1 g/dL (3.2-5.0); ALKALINE PHOSPHATASE 67 u/l (38-126); ANION GAP 11 (6-22 (CALC)); BUN 18 mg/dL (8-23); BUN/CREATININE RATIO 26 (12-20 (CALC)); C-REACTIVE PROTEIN 1.3 mg/dL (0-0.9); CARBON DIOXIDE 28 mmol/l (22-30); CHLORIDE 98 mmol/l (95-108); CREATININE 0.7 mg/dL (0.5-1.0); GFR > 60 ML/MIN (>=60 (CALC)); GFR FOR AFR.AMER. > 60 ML/MIN (>=60 (CALC)); POTASSIUM 4.1 mmol/l (3.5-5.1); SGOT/AST 29 u/l (9-36); SODIUM 133 mmol/l (137-146); TOTAL PROTEIN 6.1 g/dL (6.3-8.2)
[2021-06-22 06:47] LABS: BILIRUBIN, TOTAL 0.3 mg/dL (0.0-1.4)
--- NOTE | 2021-06-22 08:04 | NUR ---
PT SEEN AT REST IN THE BED, AWAKE, ALERT, ORIENTED X 3. LUNGS CLEAR BUT DIMINISHED, STILL USING 3 LPM NC WITH ACCEPTABLE SAT. NO DISTRESS NOTED PT EATS BREAKFAST AT THIS TIME.
--- NOTE | 2021-06-22 11:17 | NUR ---
PT TO BSC AND BACK WITH MINIMAL ASSIST NEEDED. PT ON 4 LPM NC NOW.
--- NOTE | 2021-06-22 15:09 | NUR ---
PT CONTINUES TO BSC AND BACK OCCASIONALLY, ABLE TO DO WITHOUT STANDBY ASSIST EVEN THOUGH SHE PREFERS SOMEONE TO BE THERE. NC CONTINUES AT 4 LPM, SATS HOVER AROUND 90%.
--- NOTE | 2021-06-22 16:46 | NUR ---
PT CONTINUES TO BS AND BACK, NO COMPLAINT OF SHORTNESS OF BREATH WHILE DOING THAT.
--- NOTE | 2021-06-22 20:00 | NUR ---
PATIENT ASSITED TO BEDSIDE TOILET. VITALS ARE STABE AND PATIWNT STATES NO COMPLAINTS OR CONCERNS AT THIS TIME.
[2021-06-23] VITALS (8 sets, daily range): BP systolic 135–177; BP diastolic 60–90
--- NOTE | 2021-06-23 00:01 | NUR ---
PATIENT ASLEEP. NO CHANGE IN CONDITION
--- NOTE | 2021-06-23 01:45 | NUR ---
PATIENT ASSISTED TO [facility]. PATIENT SLEEPING WELL, REPORTS NO SIGNS OR SYMPTOMS OF DISTRESS
--- NOTE | 2021-06-23 04:13 | NUR ---
PATIENT SLEEPING COMFORTABLY. NO STATUS CHANGE
--- NOTE | 2021-06-23 05:10 | NUR ---
PATIENT BP IS 186/79. NORVASC GIVEN EARLY. WILL REASSESS BP
--- NOTE | 2021-06-23 06:00 | NUR ---
PATIENTBLOOD PRESSURE REASSESSED AT 165/90 HR 84
--- NOTE | 2021-06-23 06:18 | NUR ---
PT ON 4LPM O2. KHALIDA WEL AT H=THIS TIME. DETECTIVE SERGEANT TO MONITOR.
[2021-06-23 06:54] LABS: HEMATOCRIT 41.6 % (37.0-47.0); HEMOGLOBIN 13.2 g/dl (12.0-16.0); MEAN CELL VOLUME 84.7 fL CALC (80.0-100.0); MEAN CORPUSCULAR HGB 26.9 pG CALC (26.0-32.0); MEAN CORPUSCULAR HGB CONC 31.7 g/dL CAL (32.0-36.0); RED BLOOD COUNT 4.91 mill/uL (4.20-5.60); RED CELL DISTRI WIDTH 13.5 % (11.5-15.5)
[2021-06-23 07:11] LABS: ALBUMIN 2.9 g/dL (3.2-5.0); ALKALINE PHOSPHATASE 68 u/l (38-126); ANION GAP 12 (6-22 (CALC)); BILIRUBIN, TOTAL 0.3 mg/dL (0.0-1.4); BUN 18 mg/dL (8-23); BUN/CREATININE RATIO 26 (12-20 (CALC)); CARBON DIOXIDE 28 mmol/l (22-30); CHLORIDE 97 mmol/l (95-108); CREATININE 0.7 mg/dL (0.5-1.0); GFR > 60 ML/MIN (>=60 (CALC)); GFR FOR AFR.AMER. > 60 ML/MIN (>=60 (CALC)); POTASSIUM 3.8 mmol/l (3.5-5.1); SGOT/AST 29 u/l (9-36); SODIUM 133 mmol/l (137-146); TOTAL PROTEIN 5.8 g/dL (6.3-8.2)
--- NOTE | 2021-06-23 08:20 | NUR ---
PT SEEN AWAKE AND ALERT SHE RESTS IN THE BED. SHE STATES THAT SHE DID NOT SLEEP WELL LAST NIGHT. LUNGS CLEAR BUT DIMINISHED, OXYGEN AT 4 LPM BY NC. NO COMPLAINTS OF SHORTNESS OF BREATH.
--- NOTE | 2021-06-23 13:32 | NUR ---
PT CALLS WITH OCCASIONAL NEEDS. PT USES BSC WITH MINIMAL ASSIST. NC AT 4 LPM, SATS 95%. PT DOES NOT APPEAR TO BE IN DISTRESS, WAITS FOR POSSIBLE TRANSFER TO MED/SURG IF BED OPENS.
--- NOTE | 2021-06-23 15:06 | NUR ---
REMDESIVIR RUNNING AT THIS TIME. PT WITH NEW IV SITE OLD ONE WAS OUTDATED. NO SURE WORD YET ON TRANSFER TO MED/SURG.
--- NOTE | 2021-06-23 17:43 | NUR ---
PT REMAINS IN ICU. PT CONTINUES TO ASK FOR STANDBY ASSIST TO BSC. DESAT SEEN UPON RETURN TO BED, BUT PT RECOVERS QUICKLY.
--- NOTE | 2021-06-23 19:30 | NUR ---
Received report from Mr. Adkins Family Law Attorney. Pt observed alert, awake, oriented to person, place and time. Vitals are stable. PT pending to transfer to Room: 284 in Med Surg.
--- NOTE | 2021-06-23 21:17 | NUR ---
Report given to Zina Linda by phone, pending to transfer to room 284, room still dirty. Ms. Frey warehouse team member notified about the situation.
--- NOTE | 2021-06-23 23:00 | NUR ---
Transfer Pt on Wheelchair with nasal cannula at 4 liters by Ms. Glory STERLING. Personal belons send, family member notified per PT. Covid 19 precautions follow per hospital protocol.
--- NOTE | 2021-06-23 23:03 | NUR ---
RECEIVED PATIENT FROM ICU AT 2240 IN STABLE CONDITION. 4L N/C IN PLACE. ON TELEMETRY. NO ACUTE DISTRESS NOTED. VSS. FALL PRECAUTIONS IN PLACE. COVID PRECAUTIONS IN PLACE. BED IN LOW POSITION. CALL LIGHT WITHIN REACH.
[2021-06-24 00:38] VITALS: BP 145/71
[2021-06-24 00:40] VITALS: BP 145/71
[2021-06-24 04:59] VITALS: BP 154/81
[2021-06-24 05:51] LABS: HEMATOCRIT 41.1 % (37.0-47.0); HEMOGLOBIN 12.8 g/dl (12.0-16.0); IMMATURE GRANULOCYTES 0.4 % (0.0-5.0); MEAN CELL VOLUME 84.2 fL CALC (80.0-100.0); MEAN CORPUSCULAR HGB 26.2 pG CALC (26.0-32.0); MEAN CORPUSCULAR HGB CONC 31.1 g/dL CAL (32.0-36.0); NEUT# 2.9 thou/uL (2.00-7.15); RED BLOOD COUNT 4.88 mill/uL (4.20-5.60); RED CELL DISTRI WIDTH 13.6 % (11.5-15.5)
[2021-06-24 06:03] LABS: ALBUMIN 2.9 g/dL (3.2-5.0); ALKALINE PHOSPHATASE 66 u/l (38-126); ANION GAP 9 (6-22 (CALC)); BILIRUBIN, TOTAL 0.3 mg/dL (0.0-1.4); BUN 23 mg/dL (8-23); BUN/CREATININE RATIO 28 (12-20 (CALC)); CARBON DIOXIDE 30 mmol/l (22-30); CHLORIDE 96 mmol/l (95-108); CREATININE 0.8 mg/dL (0.5-1.0); GFR > 60 ML/MIN (>=60 (CALC)); GFR FOR AFR.AMER. > 60 ML/MIN (>=60 (CALC)); POTASSIUM 4.5 mmol/l (3.5-5.1); SGOT/AST 26 u/l (9-36); SODIUM 131 mmol/l (137-146); TOTAL PROTEIN 5.7 g/dL (6.3-8.2)
--- NOTE | 2021-06-24 07:05 | NUR ---
REPORT RECEIVED FROM ALISHARN
--- NOTE | 2021-06-24 09:20 | NUR ---
PT RESTING IN SEMI FOWLERS POSITION,A&O X3;VS OBTAINED AND ASSESSMENT COMPLETED;PT DENIES ANY CURRENT PAIN OR DISCOMFORTS,PAIN SCALE AND REPORTING EDUCATED;RESPIRATIONS SHALLOW ON O2 @ 4L VIA NC;CLEAR/DIMINISHED LUNG SOUNDS NOTED WITH NON-PRODUCTIVE COUGH;ABDOMEN SOFT ON PALPATION AND ACTIVE IN ALL 4 QUADRANTS;WEAK PEDAL PULSES;HEALED PRESSURE ULCER TO BACK OF RIGHT FOOT NOTED AND FEET OFFLOADED ON A PILLOW;#22G TO LAC FLUSHED AND PATENT,SITE APPEARS HEALTHY;PT DENIES ANY ADDITIONAL NEEDS AND IS ENCOURAGED TO CALL FOR ASSISTANCE IF NEEDED;PT REMAINS IN AIR/CONTACT PRECAUTIONS DUE TO COVID19 DX;CALL LIGHT IN REACH;WILL CONTINUE TO MONITOR
[2021-06-24 09:21] VITALS: BP 131/49
--- NOTE | 2021-06-24 11:10 | NUR ---
AT BEDSIDE DISCUSSING POC.
--- NOTE | 2021-06-24 11:37 | NUR ---
PT OOB RESTING IN RECLINER;RESPIRATIONS SHALLOW ON O2 @ 4L VIA NC;PT DENIES ANY CURRENT PAIN OR DISCOMFORTS;IV SITE PATENT;I.S. PROVIDED AND PT EDUCATED ON USE,ENCOURAGED USE 10X PER HOUR;GOAL SET TO 1000;PT DENIES ANY ADDITIONAL NEEDS AND IS ENCOURAGED TO CALL FOR ASSISTANCE IF NEEDED;FALL PRECAUTIONS IN PLACE WITH CALL LIGHT IN REACH;WILL CONTINUE TO MONITOR
--- NOTE | 2021-06-24 14:42 | NUR ---
FLACO,PHYSICAl thERAPY ATT BEDSIDE WORKING WITH PT.
[2021-06-24 15:35] VITALS: BP 133/57
--- NOTE | 2021-06-24 15:55 | NUR ---
PT OOB RESTING IN RECLINER;RESPIRATIONS SHALLOW ON O2 @ 4L VIA NC;PT DENIES ANY CURRENT PAIN OR DISCOMFORTS;IV SITE PATENT;PT RE-POSITIONED INTO BED PER REQUEST;PT DENIES ANY ADDITIONAL NEEDS AT THIS TIME AND IS ENCOURAGED TO CALL FOR ASSISTANCE IF NEEDED;CALL LIGHT IN REACH;WILL CONTINUE TO MONITOR
[2021-06-24 19:54] VITALS: BP 157/65
--- NOTE | 2021-06-24 21:50 | NUR ---
REPORT RECEIVED FROM Logan GOMEZ. PATIENTCARE ASSUMED AT THIS TIME.
--- NOTE | 2021-06-24 23:40 | NUR ---
PATIENT ASSESMENT COMPLETED AT THIS TIME. NORMAL HEAR SOUNDS AUSCULTATED S2 S2. DIMISHED BREATH SOUNDS IN LOWER LUNG BASES, O2 AT 4L. PATENT #22G IV ON LEFT AC SL. ACTIVE BOWEL SOUNDS, LAST REPORTED BOWEL MOVEMENT, 06/22/21
--- NOTE | 2021-06-25 00:45 | NUR ---
PATIENT SLEEPING, DENIES ANY NEEDS AT THIS TIME. BEDSIDE TABLE AND CALL LIGHT WITHIN REACH.
[2021-06-25 04:09] VITALS: BP 147/98
--- NOTE | 2021-06-25 04:11 | NUR ---
PATIENT AWAKE, RESTING COMFORTBABLY IN BED, DENIES ANY NEEDS AT THIS TIME. BEDSIDE TABLE AND CALL LIGHT WITHIN REACH.
[2021-06-25 09:11] VITALS: BP 161/72
--- NOTE | 2021-06-25 09:16 | NUR ---
PATIENT WAS USING THE BSC AND VOID YELLOW URINE. THEN BACK TO BED. ASSESSMENT DONE. PATIENT IS ALERT AND ORIENT X3. PATIENT RESPS ARE LABORED AND LUNGS SOUND DIMINISHED. 02 AT 4L VIA NC READING 88-89%. INCREASE O2 TO 5L VIA NC AND O2 READING 90%. PATIENT STATED SHE HAS A HEADACHE. MEDICATED PATIENT WITH TYLENOL. PATIENT USE THE INCENTIVE SPIROMETRY GOES TO 1000ML. PATIENT STATED SHE HAS A COUGH. ENCOURAGE PATIENT TO DO PRONE POSITION BUT PATIENT REFUSED BECAUSE OF HER HIP.PATIENT DENIES ANY OTHER NEEDS AT THIS TIME. CALL LIGHT IN REACH.
--- NOTE | 2021-06-25 11:09 | NUR ---
PATIENT IS SITTING IN RECLINER. PATIENT STATED SHE DOES NOT FEEL SOB AT THIS TIME. PATIENT DENIES NEEDS AT THIS TIME. CALL LIGHT IN REACH.
[2021-06-25 15:27] VITALS: BP 150/63
--- NOTE | 2021-06-25 15:30 | NUR ---
PATIENT IS RESTING IN BED WITH 02 AT 5L VIA VA. PATIENT HAS NOT HAD A BM FOR A FEW DAYS BUT PATIENT REFUSED THE MILK OF MAG. PATIENT DENIES NEEDS AT THIS. CALL LIGHT IN REACH.
[2021-06-25 19:54] VITALS: BP 157/77
[2021-06-26 03:30] VITALS: BP 166/79
[2021-06-26 08:15] VITALS: BP 145/71
[2021-06-26 15:45] VITALS: BP 145/71
[2021-06-26 19:00] VITALS: BP 164/77
[2021-06-27 04:00] VITALS: BP 169/85
--- NOTE | 2021-06-27 06:45 | NUR ---
REPORT RECEIVED FROM MADI. CARE ASSUMED.
[2021-06-27 07:12] LABS: HEMATOCRIT 41.3 % (37.0-47.0); MEAN CELL VOLUME 85.3 fL CALC (80.0-100.0); MEAN CORPUSCULAR HGB 26.9 pG CALC (26.0-32.0); MEAN CORPUSCULAR HGB CONC 31.5 g/dL CAL (32.0-36.0); RED BLOOD COUNT 4.84 mill/uL (4.20-5.60); RED CELL DISTRI WIDTH 13.6 % (11.5-15.5)
[2021-06-27 07:30] LABS: ALBUMIN 2.8 g/dL (3.2-5.0); ALKALINE PHOSPHATASE 65 u/l (38-126); ANION GAP 10 (6-22 (CALC)); BILIRUBIN, TOTAL 0.3 mg/dL (0.0-1.4); BUN 25 mg/dL (8-23); BUN/CREATININE RATIO 31 (12-20 (CALC)); CARBON DIOXIDE 28 mmol/l (22-30); CHLORIDE 99 mmol/l (95-108); CREATININE 0.8 mg/dL (0.5-1.0); GFR > 60 ML/MIN (>=60 (CALC)); GFR FOR AFR.AMER. > 60 ML/MIN (>=60 (CALC)); POTASSIUM 4.1 mmol/l (3.5-5.1); SGOT/AST 20 u/l (9-36); SODIUM 133 mmol/l (137-146); TOTAL PROTEIN 5.9 g/dL (6.3-8.2)
--- NOTE | 2021-06-27 08:00 | NUR ---
WHIPPED TOPPING MIXER SET PT UP FOR AM MEAL AT THIS TIME.
[2021-06-27 09:33] VITALS: BP 170/82
--- NOTE | 2021-06-27 09:45 | NUR ---
PT RESTING IN BED AWAKE. PT IS ALERT AND ORIENTED X3. SHIFT ASSESSMENT COMPLETED AT THIS TIME. IV PATENT X1. O2 @4LNC. NO DISTRESS NOTED. CALL LIGHT IN REACH. WILL CONTINUE TO MONITOR.
--- NOTE | 2021-06-27 12:00 | NUR ---
PT SITTING UP IN CHAIR EATING LUNCH AT THIS TIME. RESP ARE EVEN AND UNLABORED. NO DISTRESS NOTED. CALL LIGHT IN REACH. WILL CONTINUE TO MONITOR.
[2021-06-27 14:30] VITALS: BP 134/59
--- NOTE | 2021-06-27 16:00 | NUR ---
PT SITTING UP IN RECLINER AT BEDSIDE. RESP ARE EVEN AND UNLABORED. NO DISTRESS NOTED. CALL LIGHT IN REACH. WILL CONTINUE TO MONITOR.
--- NOTE | 2021-06-27 18:10 | NUR ---
PT note Patient is seen for standing marching x 30 seconds FB DBE and forced expiration after 4 sec breath holds. Her transitional movements are good and and she is able to sit to stand with FABBY. She would need home health PT and nursing if DC to home is expected although her Am Pac is 12 indicating she would do well in ECF She is hard to convice to go to ECF when I speak with her Our plan is to continue DBE and ambulation with emphasis on HEP
[2021-06-27 19:24] VITALS: BP 111/55
--- NOTE | 2021-06-27 21:00 | NUR ---
PATIENT SITTING SEMI-FOWLERS. REQUESTING MEDICATINS BE BROUGHT BELKYS. EXPLAINED TO PATIENT THAT I PASS EVENING MEDICATIONS AROUND 2100. VERBALIZED UNDERSTANDING. DENIES PAIN OR SOB AT THIS TIME. ON TELEMETRY. O2 4L N/C IN PLACE. ASSESSMENT COMPLETED AND CHARTED. BED IN LOW POSITION. CALL LIGHT WITHIN REACH.
[2021-06-27 23:45] VITALS: BP 122/51
--- NOTE | 2021-06-28 01:41 | NUR ---
RESTING WITH EYES CLOSED. NO ACUTE DISTRESS OBSERVED. BED IN LOW POSITION. CALL LIGHT WITHIN REACH.
[2021-06-28 04:00] VITALS: BP 146/74
--- NOTE | 2021-06-28 04:28 | NUR ---
RESTING QUIETLY. NO COMPLAINTS.
[2021-06-28 06:02] LABS: HEMATOCRIT 40.4 % (37.0-47.0); HEMOGLOBIN 12.5 g/dl (12.0-16.0); IMMATURE GRANULOCYTES 0.3 % (0.0-5.0); MEAN CELL VOLUME 86.1 fL CALC (80.0-100.0); MEAN CORPUSCULAR HGB 26.7 pG CALC (26.0-32.0); MEAN CORPUSCULAR HGB CONC 30.9 g/dL CAL (32.0-36.0); NEUT# 4.17 thou/uL (2.00-7.15); RED BLOOD COUNT 4.69 mill/uL (4.20-5.60); RED CELL DISTRI WIDTH 13.5 % (11.5-15.5)
--- NOTE | 2021-06-28 06:17 | NUR ---
THIS NURSE WENT TO PATIENT'S ROOM TO START NEW IV. PATIENT NOT ALLOWING AT THIS TIME. UP TO BSC WITHOUT DIFFICULTY. CURRENTLY IN BED. BED IN LOW POSITION. CALL LIGHT WITHIN REACH. FALL PRECAUTIONS ENFORCED.
[2021-06-28 06:25] LABS: ALBUMIN 2.7 g/dL (3.2-5.0); ALKALINE PHOSPHATASE 59 u/l (38-126); ANION GAP 10 (6-22 (CALC)); BILIRUBIN, TOTAL 0.2 mg/dL (0.0-1.4); BUN 30 mg/dL (8-23); BUN/CREATININE RATIO 25 (12-20 (CALC)); C-REACTIVE PROTEIN < 0.5 mg/dL (0-0.9); CARBON DIOXIDE 28 mmol/l (22-30); CHLORIDE 99 mmol/l (95-108); CREATININE 1.2 mg/dL (0.5-1.0); GFR 44 ML/MIN (>=60 (CALC)); GFR FOR AFR.AMER. 53 ML/MIN (>=60 (CALC)); POTASSIUM 4.3 mmol/l (3.5-5.1); SGOT/AST 19 u/l (9-36); SODIUM 133 mmol/l (137-146); TOTAL PROTEIN 5.6 g/dL (6.3-8.2)
--- NOTE | 2021-06-28 07:08 | NUR ---
REPORT RECEIVED FROM ALISHARN
--- NOTE | 2021-06-28 08:45 | NUR ---
PT RESTING IN SEMI FOWLERS POSITION,A&O X3;VS OBTAINED AND ASSESSMENT COMPLETED;PT DENIES ANY CURRENT PAIN OR DISCOMFORTS,PAIN SCALE AND REPORTING EDUCATED;RESPIRATIONS EVEN AND UNLABORED ON O2 @ 4L VIA NC,CLEAR/DIMINISHED LUNG SOUNDS WITH NON-PRODUCTIVE COUGH;ABDOMEN SOFT ON PALPATION AND ACTIVE IN ALL 4 QUADRANTS;WEAK PEDAL PULSES;HEALED PRESSURE ULCER TO RIGHT HEEL NGUYEN;#22G TO RAC FLUSHED AND PATENT,NS STARTED @ 50ML/HR,SITE APPEARS HEALTHY;PT DENIES ANY ADDITIONAL NEEDS AT THIS TIME AND IS ENCOURAGED TO CALL FOR ASSISTANCE IF NEEDED;PT REMAINS IN AIR/CONTACT PRECAUTIONS DUE TO COVID19 DX;FALL PRECAUTIONS REMAIN IN PLACE WITH CALL LIGHT IN REACH;WILL CONTINUE TO MONITOR
[2021-06-28 08:47] VITALS: BP 162/71
[2021-06-28 10:30] VITALS: BP 178/71
[2021-06-28 11:15] VITALS: BP 156/68
--- NOTE | 2021-06-28 11:19 | NUR ---
AT BEDSIDE DISCUSSING POC.
--- NOTE | 2021-06-28 12:30 | NUR ---
PT OOB RESTING IN RECLINER;RESPIRATIONS EVEN AND UNLABORED ON O2 @ 2L VIA NC;PT DENIES ANY CURRENT PAIN OR DISCOMFORTS,PAIN SCALE AND REPORTING EDUCATED;PT DISLOGED IV SITE WITH CATHETER INTACT, NEW #22G STARTED TO RH ON 1ST ATTEMPT BY THIS WRITTER AND IVF RESTARTED AT THIS TIME;PT DENIES ANY ADDITIONAL NEEDS;ENCOURAGED TO CALL FOR ASSISTANCE IF NEEDED;FALL PRECAUTIONS IN PLACE WITH CALL LIGHT IN REACH;WILL CONTINUE TO MONITOR
[2021-06-28 15:45] VITALS: BP 137/57
--- NOTE | 2021-06-28 15:50 | NUR ---
FLACO, PHYSICAL THERAPY AT BEDSIDE WORKING WITH PT.
--- NOTE | 2021-06-28 16:29 | NUR ---
Patient is seen for DBE and breath holds as before. She is also seen for marching as before. She could barely pull 1000 ml on the incentive spirometer today and desaturated to 88 with little effort. She was able to perform her breath holds and forced expiration but struggled today with marching in place lasting only about 20 seconds before once again desaturating and gasping for breath She has a fluctuating funcitnoal status due to her lung function but sheould be able to handle stairs into her home if given time. She does not have a musculoskeltal deficit in marching but does need assist due to the desaturation as noted Am Pac is unchanged
--- NOTE | 2021-06-28 17:30 | NUR ---
PT RESTING IN RECLINER;RESPIRATIONS EVEN AND UNLABORED ON O2 @ 4L VIA NC;PT DENIES ANY CURRENT PAIN OR DISCOMFORTS;TELE MONITORING IN PLACE;IV SITE REMOVED DUE TO INFILTRATION;X3 ATTEMPTS MADE BY THIS NURSE, WILL HAVE ANOTHER STAFF MEMBER ATTEMPT;PT DENIES ANY ADDITIONAL NEEDS AND IS ENCOURAGED TO CALL FOR ASSISTANCE IF NEEDED;CALL LIGHT IN REACH;WILL CONTINUE TO MONITOR
[2021-06-28 19:00] VITALS: BP 149/62
--- NOTE | 2021-06-28 22:05 | NUR ---
PATIENT UP TO CHAIR. DENIES PAIN. NEW VAD #20 LFA X1 ATTEMPT. TOLERATED WELL. ASSESSMENT COMPLETED AND CHARTED. BED IN LOW POSITION. CALL LIGHT WITHIN REACH.
--- NOTE | 2021-06-29 00:28 | NUR ---
RESTING QUIETLY. NO ACUTE DISTRESS OBSERVED. BED IN LOW POSITION. CALL LIGHT WITHIN REACH.
[2021-06-29 04:00] VITALS: BP 148/63
--- NOTE | 2021-06-29 04:13 | NUR ---
NO CHANGES NOTED.
[2021-06-29 06:01] LABS: ALBUMIN 2.5 g/dL (3.2-5.0); ALKALINE PHOSPHATASE 59 u/l (38-126); ANION GAP 9 (6-22 (CALC)); BUN 27 mg/dL (8-23); BUN/CREATININE RATIO 32 (12-20 (CALC)); CARBON DIOXIDE 25 mmol/l (22-30); CHLORIDE 104 mmol/l (95-108); CREATININE 0.8 mg/dL (0.5-1.0); GFR > 60 ML/MIN (>=60 (CALC)); GFR FOR AFR.AMER. > 60 ML/MIN (>=60 (CALC)); POTASSIUM 4.3 mmol/l (3.5-5.1); SGOT/AST 20 u/l (9-36); SODIUM 133 mmol/l (137-146); TOTAL PROTEIN 5.3 g/dL (6.3-8.2)
[2021-06-29 06:03] LABS: BILIRUBIN, TOTAL 0.3 mg/dL (0.0-1.4); HEMATOCRIT 38.1 % (37.0-47.0); HEMOGLOBIN 11.9 g/dl (12.0-16.0); IMMATURE GRANULOCYTES 0.3 % (0.0-5.0); MEAN CORPUSCULAR HGB 26.9 pG CALC (26.0-32.0); MEAN CORPUSCULAR HGB CONC 31.2 g/dL CAL (32.0-36.0); NEUT# 5.32 thou/uL (2.00-7.15); RED BLOOD COUNT 4.43 mill/uL (4.20-5.60); RED CELL DISTRI WIDTH 13.7 % (11.5-15.5)
--- NOTE | 2021-06-29 07:05 | NUR ---
REPORT RECEIVED FROM ALISHARN
--- NOTE | 2021-06-29 09:20 | NUR ---
PT RESTING IN SEMI FOWLERS POSITION,A&O X3;VS OBTAINED AND ASSESSMENT COMPLETED;PT DENIES ANY CURRENT PAIN OR DISCOMFORTS,PAIN SCALE AND REPORTING EDUCATED;RESPIRATIONS EVEN AND UNLABORED ON O2 @ 4L VIA NC, O2 SATS 93% AND OXYGEN TITRATED DOWN TO 3L;CLEAR/DIMINISHED LUNG SOUNDS WITH NON-PRODUCTIVE COUGH;ABDOMEN SOFT ON PALPATION AND ACTIVE IN ALL 4 QUADRANTS;WEAK PEDAL PULSES;SKIN INTACT;#20G TO LFA INFUSING NS @ 50ML/HR,SITE APPEARS HEALTHY;PT DENIES ANY ADDITIONAL NEEDS AND IS ENCOURAGED TO CALL FOR ASSISTANCE IF NEEDED;PT REMAINS IN AIR/CONTACT PRECAUTIONS DUE TO COVID19;FALL PRECAUTIONS IN PLACE WITH CALL LIGHT IN REACH;WILL CONTINUE TO MONITOR
[2021-06-29 09:22] VITALS: BP 168/79
--- NOTE | 2021-06-29 11:08 | NUR ---
FLACO,PHYSICAL THERAPY AT BEDSIDE
--- NOTE | 2021-06-29 11:30 | NUR ---
PAMELA BAKER AT BEDSIDE DISCUSSING POC.
--- NOTE | 2021-06-29 11:45 | NUR ---
PT RESTING IN RECLINER;RESPIRATIONS EVEN AND UNLABORED ON O2 @ 3L VIA NC;PT DENIES ANY CURRENT PAIN OR NEEDS;IV SITE PATENT INFUSING NS WITH EASE PER ORDER;PT ENCOURAGED TO CALL FOR ASSISTANCE IF NEEDED;CALL LIGHT IN REACH;WILL CONTINUE TO MONITOR
--- NOTE | 2021-06-29 14:49 | NUR ---
PT note Reviewed DBE with the patient. Her O2 sats on 3 lo2 NC were 94%. She was 2plus dyspneic at rest. She refused standing activity at the time of treatment but did comply with DE including breath holds x 4 secs and forced expiration. She was able to pull 1000ml on th eincentive spirometer- an improvement from yesterday Her Am Pac is unchanged. She would do well to go home with home health to continue increasing her independence
--- NOTE | 2021-06-29 16:10 | NUR ---
PT RESTING IN RECLINER;RESPIRATIONS EVEN AND UNLABORED ON O2 @ 3L VIA NC;PT DENIES ANY CURRENT PAIN OR NEEDS;IV SITE PATENT INFUSING NS @ 50ML/HR;PT EDUCATED ON PLANS TO D/C HOME AND VERBALIZES UNDERSTANDING AND DENIES ANY ADDITIONAL QUESTIONS OR NEEDS;ENCOURAGED TO CALL FOR ASSISTANCE IF NEEDED;CALL LIGHT IN REACH;WILL CONTINUE TO MONITOR
[2021-06-29] MEDS ORDERED: MEDDOSEPAK PO (16:12)
[2021-06-29 16:25] VITALS: BP 116/65
--- NOTE | 2021-06-29 17:14 | NUR ---
ALL DISCHARGE INSTRUCTIONS DISCUSSED WITH PT AND CALLED TO PT SON ( VENICE), BOTH VERBALIZE UNDERSTANDING;PT INSTRUCTED TO F/U WITH PCP, [facility] ROUTINE HOME MEDICATIONS, PHYSICAL THERPAY AND PT TO FOLLOW, CONTINUE ROUTINE OXYGEN;PT VERBALIZES UNDERSTANDING AND DENIES ANY ADDITIONAL NEEDS;WC TO BE PROVIDED FOR D/C HOME;[facility] TO TRANSPORT PT HOME;WILL CONTINUE TO MONITOR
--- NOTE | 2021-06-29 17:24 | NUR ---
Discharge instructions given. Patient verbalizes understanding of same. Discharged in stable condition via Wheelchair to Home with family. All belongings sent with pt. PT TRANSPORTED TO [facility] VIA ACCOMPANIED BY HALLIE AGUIRRE;ALL BELONGINGS LEFT WITH PT.[facility] TO TRANSPORT PT HOME.
== END 2021-06-29 17:26 | disposition home health service (06) | DRG 177 ==
LOC: ED 16:17 → ED-I 17:21 → ED 17:21 → ED-I 17:45 → ED 17:59 → ICU 18:00 → MS2 06-20 22:17 → ICU 06-20 22:17 → MS2 06-23 22:22
PROVIDERS: Family Medicine; Internal Medicine; Nurse Practitioner; ADMIT Hospitalist; ATTEND Hospitalist
PROC: XW033E5 Introduction of Remdesivir Anti-infective into Peripheral Vein, Percutaneous Approach, New Technology Group 5 (ICD-10-PCS; principal; 2021-06-20)
DX: U07.1 COVID-19 (principal); J12.82 Pneumonia due to coronavirus disease 2019; J96.21 Acute and chronic respiratory failure with hypoxia; E87.1 Hypo-osmolality and hyponatremia; J43.9 Emphysema, unspecified; I12.9 Hypertensive chronic kidney disease with stage 1 through stage 4 chronic kidney disease, or unspecified chronic kidney disease; N18.30 Chronic kidney disease, stage 3 unspecified; I25.10 Atherosclerotic heart disease of native coronary artery without angina pectoris; D70.9 Neutropenia, unspecified; K21.9 Gastro-esophageal reflux disease without esophagitis; I73.9 Peripheral vascular disease, unspecified; K44.9 Diaphragmatic hernia without obstruction or gangrene; E83.42 Hypomagnesemia; E87.6 Hypokalemia; I95.9 Hypotension, unspecified; F17.200 Nicotine dependence, unspecified, uncomplicated; Z87.440 Personal history of urinary (tract) infections; Z99.81 Dependence on supplemental oxygen; Z79.02 Long term (current) use of antithrombotics/antiplatelets; Z86.73 Personal history of transient ischemic attack (TIA), and cerebral infarction without residual deficits
CPT/HCPCS: G0378; J1650; J3475; Q9967

== ENCOUNTER 2021-07-22 14:07 | Observation (INO) | payer MEDICARE ==
[~2021-07-22] VITALS: Ht 165.1 cm; Wt 59.0 kg
[~2021-07-22 14:07] MED LIST changes: +C 500; +IS-ZC 50 50 MG1 TAB; +MEDDOSEPAK PO; +VITAMIN D2
--- NOTE | 2021-07-22 14:15 | NUR ---
PATIENT SEEN IN OUTSIDE WAITING AREA. PATIENT 02 DEPENDENT AND ON 5 LITERS PER MINUTE OXYGEN SATURATION 95% ON 5 LITERS. MD NOTIFIED. PATIENT INFORMED OF WAIT TIME AND VERBALLY ACKNOWLEDGED
--- NOTE | 2021-07-22 15:12 | NUR ---
PATIENT TO ROOM 16 FOR BEDSIDE EXAM
[2021-07-22 16:12] LABS: HEMATOCRIT 40.4 % (37.0-47.0); HEMOGLOBIN 12.3 g/dl (12.0-16.0); IMMATURE GRANULOCYTES 0.2 % (0.0-5.0); MEAN CELL VOLUME 87.4 fL CALC (80.0-100.0); MEAN CORPUSCULAR HGB 26.6 pG CALC (26.0-32.0); MEAN CORPUSCULAR HGB CONC 30.4 g/dL CAL (32.0-36.0); NEUT# 3.38 thou/uL (2.00-7.15); RED BLOOD COUNT 4.62 mill/uL (4.20-5.60)
--- NOTE | 2021-07-22 16:23 | NUR ---
PATIENT RESTING ON STRETCHER AT THIS TIME
[2021-07-22 16:31] LABS: ALKALINE PHOSPHATASE 82 u/l (38-126); ANION GAP 11 (6-22 (CALC)); BUN 17 mg/dL (8-23); BUN/CREATININE RATIO 21 (12-20 (CALC)); CARBON DIOXIDE 27 mmol/l (22-30); CHLORIDE 101 mmol/l (95-108); CREATININE 0.8 mg/dL (0.5-1.0); GFR > 60 ML/MIN (>=60 (CALC)); GFR FOR AFR.AMER. > 60 ML/MIN (>=60 (CALC)); POTASSIUM 3.7 mmol/l (3.5-5.1); SGOT/AST 23 u/l (9-36); SODIUM 135 mmol/l (137-146)
[2021-07-22 16:38] LABS: ALBUMIN 3.6 g/dL (3.2-5.0); BILIRUBIN, TOTAL 0.5 mg/dL (0.0-1.4); TOTAL PROTEIN 7.2 g/dL (6.3-8.2)
--- NOTE | 2021-07-22 17:42 | NUR ---
PATIENT RESTING STRETCHER AT THIS TIME AWAITING RESULTS. NO COMPLAINTS VOICED
--- NOTE | 2021-07-23 00:37 | NUR ---
REPORT GIVEN TO BRIDGER CALDERÓN
--- NOTE | 2021-07-23 02:05 | NUR ---
Reassessment of patient completed. No distress noted.
--- NOTE | 2021-07-23 03:18 | NUR ---
2000 PT PROVIDED WITH HOR MEAL, CRACKERS, WATER, AND PUDDING. PT TOLERATED WELL. 2099 VERBALIZES UNDERSTANDING OF PLAN FOR ADMISSION AND IS AWARE THAT SHE IS WAITING FOR A BED UPSTAIRS. 2330 PT ASSISTED TO BEDSIDE COMMODE.
--- NOTE | 2021-07-23 03:23 | NUR ---
Admission Note Report Given to: BRIDGER CALDERÓN Transported by: X Wheelchair Stretcher Transported with: X Nurse Transporter X Patent IV X O2 X Autos Disassembler Location: ICU X MS2
--- NOTE | 2021-07-23 03:24 | NUR ---
TELEBOX 8614 IN USE. PT BEING TRANSPORTED TO FLOOR VIA WHEELCHAIR BY HALLIE GORDON.
[2021-07-23 03:35] VITALS: BP 165/72
--- NOTE | 2021-07-23 03:45 | NUR ---
PT ARRIVED TO MED SURG UNIT VIA WC ACCOMPANIED BY ED WINE PASTEURIZER STAFF. PT APPEARS TO BE IN STABLE CONDITION AT THIS TIME.
--- NOTE | 2021-07-23 04:25 | NUR ---
ASSESSMENT COMPLETED AT THIS TIME AND ADMISSION COMPLETED. LAB IN WITH PT ALSO AT THIS TIME AND WAS UNABLE TO OBTAIN BLOOD. CLINICAL LABORATORY MANAGER ATTEMPTED X1 AND ALSO WAS UNABLE TO OBTAIN BLOOD DRAW. LAB TO NOTIFY DAY FOR DRAW.
--- NOTE | 2021-07-23 05:15 | NUR ---
CAR SALTER IN WITH PT AT THIS TIME.
--- NOTE | 2021-07-23 06:39 | NUR ---
ANTIBIOTIC THERAPY ADMINISTERED AT THIS TIME. PT WAS SLEEPING, BUT AWOKE TO MY VOICE. NO S/O DISTRESS NOTED.
[2021-07-23 06:45] LABS: HEMATOCRIT 41.3 % (37.0-47.0); HEMOGLOBIN 12.4 g/dl (12.0-16.0); IMMATURE GRANULOCYTES 0.4 % (0.0-5.0); MEAN CELL VOLUME 87.3 fL CALC (80.0-100.0); MEAN CORPUSCULAR HGB 26.2 pG CALC (26.0-32.0); NEUT# 1.87 thou/uL (2.00-7.15); RED BLOOD COUNT 4.73 mill/uL (4.20-5.60); RED CELL DISTRI WIDTH 14.8 % (11.5-15.5)
[2021-07-23 06:50] LABS: ANION GAP 11 (6-22 (CALC)); BUN 16 mg/dL (8-23); BUN/CREATININE RATIO 20 (12-20 (CALC)); C-REACTIVE PROTEIN 1.4 mg/dL (0-0.9); CARBON DIOXIDE 26 mmol/l (22-30); CHLORIDE 103 mmol/l (95-108); CREATININE 0.8 mg/dL (0.5-1.0); GFR > 60 ML/MIN (>=60 (CALC)); GFR FOR AFR.AMER. > 60 ML/MIN (>=60 (CALC)); POTASSIUM 4.4 mmol/l (3.5-5.1); SODIUM 136 mmol/l (137-146)
[2021-07-23 07:35] VITALS: BP 152/98
--- NOTE | 2021-07-23 07:51 | NUR ---
ASSESSMENT DONE. PATIENT IS SEMI-FOWLERS POSITION IN BED. PATIENT IS ALERT AND ORIENT X3. PATIENT DENIES SOB AT THIS TIME. O2 AT 4L VIA NC AND O2 READING 98%. TELE IN PLACE. FLUIDS PROVIDED. PATIENT IS SETTING UP FOR BREAKFAST. PATIENT DENIES ANY OTHER NEEDS AT THIS TIME. CALL LIGHT IN REACH.
[2021-07-23] MEDS ORDERED: ALENDRONATE SOD70 MG PO (08:33)
--- NOTE | 2021-07-23 11:44 | NUR ---
PATIENT IS RESTING IN BED WITH NO DISTRESS NOTED. PATIENT O2 AT 4L VIA NC AND READING 96%. TELE IN PLACE. PATIENT DENIES NEEDS AT THIS TIME. CALL LIGHT IN REACH.
[2021-07-23 12:00] VITALS: BP 145/47
[2021-07-23 15:00] VITALS: BP 141/58
--- NOTE | 2021-07-23 16:00 | NUR ---
PATIENT IS RESTING IN BED WITH NO DISTRESS NOTED. PATIENT DENIES SOB AT THIS TIME OR PAIN. O2 AT 4L VIA NC AND O2 READING 96%. PO FLUIDS PROVIDED. PATIENT DENIES ANY OTHER NEEDS AT THIS TIME. CALL LIGHT IN REACH.
--- NOTE | 2021-07-23 17:40 | NUR ---
PATIENT IS SITTING IN THE RECLINER EATING HER DINNER. CALL LIGHT IN REACH.
--- NOTE | 2021-07-23 20:00 | NUR ---
PATIENT RESTING IN BED AT THIS TIME-AWAKE ALERT AND ORIENTEDX3 WITH O2 VIANASAL CANNULA IN PLACE-O2 SAT IS 94%. PATIENT IS O2 DEPENDANT AND ALREADY HAS O2 AT HOME. ON ISOLATION FOR COVID. TELE MONITOR IN PLACE AND READING SB AT THIS TIME. IV SITE TO RAC AND RIGHT FOREARM-BOTH INTACT AND FLUSHED-HEALTHY AT THIS TIME. LUNGS ARE CLEAR AND DIMINISHED IN BASES. NON-PRODUCTIVE COUGH. ABD IS SOFT WITH ACTIVE BS. LAST BM WAS 07/22-OFFERED MOM BUT DECLINED-STATES THAT SHE WILL TAKE IT IN THE MORNING IF SHE NEEDS IT. NO PERIPHERAL EDEMA NOTED. PULSES ARE PALPABLE. SAFETY PRECAUTIONS REINFORCED. CALL LIGHT IN REACH. WILL CONT TO MONITOR.
[2021-07-23 20:10] VITALS: BP 155/77
[2021-07-24] VITALS (7 sets, daily range): BP systolic 131–166; BP diastolic 52–71
--- NOTE | 2021-07-24 | NUR ---
PATIENT RESTING IN BED WITH HOB ELEVATED. O2 VIA NASAL CANNULA IN PLACE. TELE MONITOR IN PLACE-LAST READING SB-53. NO COMPLAINTS AT THIS TIME. SAFETY PRECAUTIONS REINFORCED. CALL LIGHT IN REACH.
--- NOTE | 2021-07-24 04:06 | NUR ---
PATIENT RESTING IN BED AT THIS TIME WITH O2 VIA NASAL CANNULA IN PLACE. EYES CLOSED. RESPS ARE EVEN AND UNLABORED. TELE MONITOR IN PLACE. CALL LIGHT IN REACH. WILL CONT TO MONITOR.
[2021-07-24 05:38] LABS: HEMATOCRIT 38.6 % (37.0-47.0); HEMOGLOBIN 11.8 g/dl (12.0-16.0); IMMATURE GRANULOCYTES 0.2 % (0.0-5.0); MEAN CELL VOLUME 87.3 fL CALC (80.0-100.0); MEAN CORPUSCULAR HGB 26.7 pG CALC (26.0-32.0); MEAN CORPUSCULAR HGB CONC 30.6 g/dL CAL (32.0-36.0); NEUT# 3.66 thou/uL (2.00-7.15); RED BLOOD COUNT 4.42 mill/uL (4.20-5.60); RED CELL DISTRI WIDTH 14.7 % (11.5-15.5)
[2021-07-24 05:51] LABS: ALBUMIN 2.7 g/dL (3.2-5.0); ALKALINE PHOSPHATASE 70 u/l (38-126); ANION GAP 11 (6-22 (CALC)); BILIRUBIN, TOTAL 0.1 mg/dL (0.0-1.4); BUN 27 mg/dL (8-23); BUN/CREATININE RATIO 29 (12-20 (CALC)); C-REACTIVE PROTEIN 0.9 mg/dL (0-0.9); CARBON DIOXIDE 26 mmol/l (22-30); CHLORIDE 103 mmol/l (95-108); CREATININE 0.9 mg/dL (0.5-1.0); GFR > 60 ML/MIN (>=60 (CALC)); GFR FOR AFR.AMER. > 60 ML/MIN (>=60 (CALC)); POTASSIUM 4.3 mmol/l (3.5-5.1); SGOT/AST 16 u/l (9-36); SODIUM 135 mmol/l (137-146); TOTAL PROTEIN 5.7 g/dL (6.3-8.2)
--- NOTE | 2021-07-24 06:45 | NUR ---
PT IS ON 5 LITER NASAL CANNULA
--- NOTE | 2021-07-24 08:53 | NUR ---
ASSESSMENT DONE. PATIENT IS SEMI-FOWLERS IN BED RESTING. PATIENT IS ALERT AND ORIENT X3. PATIENT DENIES PAIN OR SOB AT THIS TIME. O2 AT 4L VIA NC AND O2 WAS READING 89% FOR A FEW SECONDS THEN WHEN TO 91%. LUNGS SOUND DIMINISHED. TELE IN PLACE. PATIENT DENIES NEEDS. CALL LIGHT IN REACH. NOTIFIED JACQUELINE BECERRA THAT PATIENT PULSE HAS BEEN SB. NO NEW ORDERS RECEIVED AT THIS TIME.
--- NOTE | 2021-07-24 11:44 | NUR ---
PATIENT IS SITTING IN RECLINER EATING HER LUNCH. O2 READING 98% AT 4L VIA NC. MEDICATED PATIENT WITH MILK OF MAG. PATIENT DENIES ANY OTHER NEEDS AT THIS TIME. CALL LIGHT IN REACH.
--- NOTE | 2021-07-24 15:30 | NUR ---
PATIENT HAS BEEN USING THE INCENTIVE SPIROMETRY GOES TO 1,000ML. PATIENT IS SITTING IN THE RECLINER. O2 READING 98% AT 4L VIA NC. PATIENT DENIES NEEDS AT THIS TIME. CALL LIGHT IN REACH.
--- NOTE | 2021-07-24 20:00 | NUR ---
PATIENT IS SITTING UP IN THE RECLINER AT THIS TIME-AWAKE ALERT AND ORIENTEDX3 WITH O2 VIA NASAL CANNULA IN PLACE AT 4LPM. O2 SAT AT THIS TIME IS 96%. TELE MONITOR IN PLACE-LAST READING SB-47. IV SITE TO RIGHT FOREARM IS LEAKING AND WILL BE CHANGED. PATIENT MIN ASSIST TO BSC TO VOID INOCENTE URINE AND THEN ASSISTED INTO BED. PATIENT WITH CLEAR LUNG SOUNDS WITH DECREASED IN THE BASES. NON-PRODUCTIVE COUGH. PATIENT STATES THAT SHE HAD SMALL BM TODAY AFTER TAKING MOM THIS MORNING. ABD IS SOFT WITH BS+. NO PERIPHERAL EDEMA NOTED. PULSES ARE PALPABLE. PATIENT ON ISOLATION FOR COVID. SAFETY PRECAUTIONS REINFORCED. CALL LIGHT IN REACH. WILL CONT TO MONITOR.
--- NOTE | 2021-07-24 22:07 | NUR ---
IV SITE TO RIGHT FOREARM IS LEAKING AND SITE D/C'ED WITH CATH INTACT. NEW IV SITE STARTED TO LEFT FOREARM-#22 GAUGE WITH GOOD BLOOD RETURN. RESTING IN BED WITH NO COMPLAINTS AT THIS TIME. SAFETY PRECAUTIONS REINFORCED. PATIENT ON ISOLATION FOR COVED. CALL LIGHT IN REACH. WILL CONT TO MONITOR.
[2021-07-25] VITALS (7 sets, daily range): BP systolic 123–174; BP diastolic 54–80
--- NOTE | 2021-07-25 01:12 | NUR ---
PATIENT RESTING IN BED WITH EYES CLOSED AND RESP EVEN AND UNLABORED. O2 VIA NASAL CANNULA IN PLACE AT 4LPM. TELE MONITOR IN PLACE-LAST READING WAS SB-45. CALL LIGHT IN REACH. WILL CONT TO MONITOR.
--- NOTE | 2021-07-25 04:03 | NUR ---
PATIENT RESTING IN BED AT THIS TIME WITH EYES CLOSED. RESPS ARE EVEN AND UNLABORED. O2 VIA NASAL CANNULA IN PLACE. TELE MONITOR IN PLACE. CALL LIGHT IN REACH. WILL CONT TO MONITOR.
[2021-07-25 06:12] LABS: HEMOGLOBIN 11.6 g/dl (12.0-16.0); MEAN CELL VOLUME 87.8 fL CALC (80.0-100.0); MEAN CORPUSCULAR HGB 26.8 pG CALC (26.0-32.0); MEAN CORPUSCULAR HGB CONC 30.5 g/dL CAL (32.0-36.0); NEUT# 3.18 thou/uL (2.00-7.15); RED BLOOD COUNT 4.33 mill/uL (4.20-5.60); RED CELL DISTRI WIDTH 14.5 % (11.5-15.5)
[2021-07-25 06:28] LABS: ALBUMIN 2.6 g/dL (3.2-5.0); ALKALINE PHOSPHATASE 64 u/l (38-126); ANION GAP 9 (6-22 (CALC)); BUN 25 mg/dL (8-23); BUN/CREATININE RATIO 33 (12-20 (CALC)); CARBON DIOXIDE 25 mmol/l (22-30); CHLORIDE 105 mmol/l (95-108); CREATININE 0.8 mg/dL (0.5-1.0); GFR > 60 ML/MIN (>=60 (CALC)); GFR FOR AFR.AMER. > 60 ML/MIN (>=60 (CALC)); SGOT/AST 14 u/l (9-36); SODIUM 135 mmol/l (137-146); TOTAL PROTEIN 5.6 g/dL (6.3-8.2)
--- NOTE | 2021-07-25 08:00 | NUR ---
PATIENT IS SITTING IN THE RECLINER. ASSESSMENT DONE. PATIENT IS ALERT AND ORIENT X3. PATIENT DENIES PAIN. TELE IN PLACE. O2 READING 94% VIA 4L NC. LUNGS SOUND CLEAR/DIMINIISHED. SETUP PATIENT FOR BREAKFAST. PATIENT DENIES ANY OTHER NEEDS AT THIS TIME. CALL LIGHT IN REACH.
--- NOTE | 2021-07-25 12:15 | NUR ---
PATIENT IS SITTING IN THE RECLIENR EATING HER LUNCH. O2 READIING 96% VIA 4L NC. TELE IN PLACE. PATIENT STATED SHE HAS BEEN USING THE INCENTIVE SPIROMETRY. PATIENT DENIES NEEDS AT THIS TIME. CALL LIGHT IN REACH.
--- NOTE | 2021-07-25 13:58 | NUR ---
Patient underwent PT intervention today. Patient did seated B LE AROM exercises today: knee extension, hip flexion, hip adduction, hip abduction, hamstring curls, gluteal squeezes, and ankle pumps for 10 reps x 2 sets withoccasional verbal and tactile cuing to help decrease trick movements and fall risks. Patient also did log rolling bed mobility and push off sit to stand transfers (1-2 x) with mod to min A x 1 with patient needing 1-2 attempts to finish task.
--- NOTE | 2021-07-25 16:14 | NUR ---
PATIENT IS SITTING IN THE RECLIENR WITH NO DISTRESS NOTED. O2 READING 96%-97% VIA 3.5L NC. PATIENT REFUSE THE MILK OF MAG STATE THAT SHE WILL GET IT TOMORROW. PATIENT DENIES NEEDS AT THIS TIME. CALL LIGHT IN REACH.
--- NOTE | 2021-07-25 19:45 | NUR ---
PATIENT SITTING IN RECLINER AT THIS TIME WITH DOXYCYCLINE INFUSING VIA LEFT FOREARM. SITE REMAINS HEALTHY AT THIS TIME. O2 VIA NASAL CANNULA IN PLACE AT 3.[address] MON[address]OR IN [address]-LAST READING SB 48. PATIENT WITH NO COMPLAINTS AT THIS TIME. VOIDING INOCENTE URINE IN BSC. LUNGS REMAINS DIMINISHED. NON-PRODUCTIVE COUGH. ABD SOFT WITH BS+. LAST BM WAS YESTERDAY-OFFERED MOM BUT PATIENT DECLINED AT THIS TIME-WILL TAKE IT IN THE MORNING IF NEEDED. NO PERIPHERAL EDEMA NOTED. PULSES ARE PALPABLE. SAFETY PRECAUTIONS REINFORCED. CALL LIGHT IN REACH.
--- NOTE | 2021-07-25 23:07 | NUR ---
PATIENT RESTING IN BED AT THIS TIME WITH EYES CLOSED-O2 VIA NASAL CANNULA IN PLACE AT 3.5 LPM. RESPS ARE EVEN AND UNLABORED. PATIENT ON ISOLATION FOR COVID. TELE MONITOR IN PLACE. IV SITE TO LEFT FOREARM INTACT. CALL LIGHT IN REACH. WILL CONT TO MONITOR.
[2021-07-26] VITALS: BP 157/55
--- NOTE | 2021-07-26 01:47 | NUR ---
PATIENT APPEARS SLEEPING WITH HER EYES CLOSED. HOB IS SLIGHTLY ELEVATED. RESPS ARE EVEN AND UNLABORED. O2 VIA HASAL CANNULA IN PLACE AT 3.5LPM-LAST O2 SAT WAS 97. TELE MONITOR IN PLACE. CALL LIGHT IN REACH. WILL CONT TO MONITOR.
[2021-07-26 03:49] VITALS: BP 163/63
--- NOTE | 2021-07-26 04:38 | NUR ---
PATIENT RESTING IN BED AT THIS TIME WITH EYES CLOSED. RESPS ARE EVEN AND UNLABORED. O2 VIA NASAL CANNULA IN PLACE. TELE MONITOR IN PLACE=LAST READING WAS SB-46. O2 SAT THIS MORNING WAS 98% ON O2 3.5 LPM. WILL DECREASE TO 3LPM AND REACCESS. CALL LIGHT IN REACH. WILL CONT TO MONITOR.
[2021-07-26 05:45] LABS: HEMATOCRIT 40.9 % (37.0-47.0); HEMOGLOBIN 12.2 g/dl (12.0-16.0); MEAN CELL VOLUME 87.8 fL CALC (80.0-100.0); MEAN CORPUSCULAR HGB 26.2 pG CALC (26.0-32.0); MEAN CORPUSCULAR HGB CONC 29.8 g/dL CAL (32.0-36.0); RED BLOOD COUNT 4.66 mill/uL (4.20-5.60); RED CELL DISTRI WIDTH 14.5 % (11.5-15.5)
[2021-07-26 06:26] LABS: ALBUMIN 2.8 g/dL (3.2-5.0); ALKALINE PHOSPHATASE 76 u/l (38-126); ANION GAP 8 (6-22 (CALC)); BUN 28 mg/dL (8-23); BUN/CREATININE RATIO 26 (12-20 (CALC)); C-REACTIVE PROTEIN < 0.5 mg/dL (0-0.9); CARBON DIOXIDE 26 mmol/l (22-30); CHLORIDE 103 mmol/l (95-108); CREATININE 1.1 mg/dL (0.5-1.0); GFR 48 ML/MIN (>=60 (CALC)); GFR FOR AFR.AMER. 58 ML/MIN (>=60 (CALC)); MAGNESIUM 1.9 mg/dL (1.6-2.3); SGOT/AST 18 u/l (9-36); SODIUM 134 mmol/l (137-146); TOTAL PROTEIN 5.8 g/dL (6.3-8.2)
--- NOTE | 2021-07-26 06:55 | NUR ---
BEDSIDE REPORT RECEIVED, NO DISTRESS WILL CONTINUE TO MONITOR.
--- NOTE | 2021-07-26 08:15 | NUR ---
PT SITTING UP TO CHAIR. ASSESSMENT PERFORMED. IV WAS BLEEDING. SN ATTEMPT TO REINSERT X1, UNSUCCESSFUL. QUAN SUCCESSFUL X 1 ATTEMPT TO RIGHT WRIST. IVF HUNG. NO DISTRESS. WILL CONTINUE TO MONITOR.
[2021-07-26 10:30] VITALS: BP 155/59
--- NOTE | 2021-07-26 11:40 | NUR ---
Patient underwent PT intervention today. Patient carried out B LE seated AROM exercises: hip flexion, hip adduction, hip abduction, hamstring curls, knee extension, gluteal squeezes, and ankle pumps for 2 x 10 sets with occasional verbal and tactile cuing to help decrease trick movements and fall risks. Patient carried out log rolling bed mobility and sit to stand push off transfer ADLs with 1 to 2 attempts with occasional verbal cuing with SBA x 1. Patient also did gait training with CGA x 1 on level surfaces covering 10 feet x 2 reps with increased fatigue.
[2021-07-26] MEDS ORDERED: PREDNISONE20 MG PO (14:40)
[2021-07-26] MEDS ORDERED: VENTOLIN HFA108 MCG IN (14:40)
[2021-07-26] MEDS ORDERED: DOXYCYCL HYC100 MG PO (14:41)
[2021-07-26 15:00] VITALS: BP 139/59
--- NOTE | 2021-07-26 15:00 | NUR ---
PT SITTING UP IN CHAIR. DC PAPERS SIGNED, IV REMOVED. MINIMAL BLEEDING COMPRESSION APPLIED. PT FAMILY STATED WILL TEST DESIGNER ABOUT 4 PM.
--- NOTE | 2021-07-26 16:25 | NUR ---
Discharge instructions given. Patient verbalizes understanding of same. Discharged in stable condition via Wheelchair to Home with family. All belongings sent with pt. WITH 02 ON 3LPM.
== END 2021-07-26 16:16 ==
LOC: ED 14:07 → ED-I 18:19 → ED 18:36 → MS2 18:37 → ED-I 18:37 → MS2 21:34
PROVIDERS: Family Medicine; Nurse Practitioner; Nurse Practitioner Family; ADMIT Internal Medicine; ATTEND Internal Medicine
DX: U07.1 COVID-19 (principal); J12.82 Pneumonia due to coronavirus disease 2019; J96.21 Acute and chronic respiratory failure with hypoxia; J44.1 Chronic obstructive pulmonary disease with (acute) exacerbation; J44.0 Chronic obstructive pulmonary disease with (acute) lower respiratory infection; I10 Essential (primary) hypertension; I25.10 Atherosclerotic heart disease of native coronary artery without angina pectoris; K21.9 Gastro-esophageal reflux disease without esophagitis; I73.9 Peripheral vascular disease, unspecified; K44.9 Diaphragmatic hernia without obstruction or gangrene; F17.200 Nicotine dependence, unspecified, uncomplicated; Z99.81 Dependence on supplemental oxygen; Z79.02 Long term (current) use of antithrombotics/antiplatelets; Z87.440 Personal history of urinary (tract) infections; R06.02 Shortness of breath; J98.11 Atelectasis
CPT/HCPCS: G0378; J1650; Q9967

== ENCOUNTER 2021-10-10 12:27 | Emergency (ER) | payer MEDICARE ==
[~2021-10-10] VITALS: Ht 165.1 cm; Wt 50.0 kg
[~2021-10-10 12:27] MED LIST changes: +DOXYCYCL HYC100 MG PO; +PREDNISONE20 MG PO; +VENTOLIN HFA108 MCG IN
[2021-10-10 13:27] LABS: HEMATOCRIT 43.3 % (37.0-47.0); HEMOGLOBIN 12.9 g/dl (12.0-16.0); IMMATURE GRANULOCYTES 0.2 % (0.0-5.0); MEAN CELL VOLUME 84.7 fL CALC (80.0-100.0); MEAN CORPUSCULAR HGB 25.2 pG CALC (26.0-32.0); MEAN CORPUSCULAR HGB CONC 29.8 g/dL CAL (32.0-36.0); NEUT# 4.82 thou/uL (2.00-7.15); RED BLOOD COUNT 5.11 mill/uL (4.20-5.60); RED CELL DISTRI WIDTH 14.9 % (11.5-15.5)
[2021-10-10 13:40] LABS: ALBUMIN 4.1 g/dL (3.2-5.0); ALKALINE PHOSPHATASE 88 u/l (38-126); ANION GAP 13 (6-22 (CALC)); BILIRUBIN, TOTAL 0.8 mg/dL (0.0-1.4); BUN 19 mg/dL (8-23); BUN/CREATININE RATIO 18 (12-20 (CALC)); CARBON DIOXIDE 24 mmol/l (22-30); CHLORIDE 102 mmol/l (95-108); CREATININE 1.1 mg/dL (0.5-1.0); GFR 48 ML/MIN (>=60 (CALC)); GFR FOR AFR.AMER. 58 ML/MIN (>=60 (CALC)); POTASSIUM 4.1 mmol/l (3.5-5.1); SGOT/AST 29 u/l (9-36); SODIUM 135 mmol/l (137-146); TOTAL PROTEIN 7.9 g/dL (6.3-8.2)
[2021-10-10 17:00] VITALS: BP 199/74
== END 2021-10-10 17:18 | disposition home or self-care (01) ==
LOC: ED 12:27
PROVIDERS: Family Medicine
DX: J44.1 Chronic obstructive pulmonary disease with (acute) exacerbation (principal); I10 Essential (primary) hypertension; K21.9 Gastro-esophageal reflux disease without esophagitis; I73.9 Peripheral vascular disease, unspecified; Z86.16 Personal history of COVID-19; Z99.81 Dependence on supplemental oxygen; Z20.822 Contact with and (suspected) exposure to COVID-19
CPT/HCPCS: Q9967

== ENCOUNTER 2022-09-08 14:09 | Inpatient (IN) | payer MEDICARE ==
[~2022-09-08] VITALS: Ht 165.1 cm; Wt 49.0 kg
[2022-09-08] VITALS (13 sets, daily range): BP systolic 148–184; BP diastolic 74–117
[2022-09-08 14:44] LABS: HEMATOCRIT 49.1 % (37.0-47.0); HEMOGLOBIN 15.2 g/dl (12.0-16.0); IMMATURE GRANULOCYTES 0.2 % (0.0-5.0); MEAN CELL VOLUME 89.9 fL CALC (80.0-100.0); MEAN CORPUSCULAR HGB 27.8 pG CALC (26.0-32.0); NEUT# 4.49 thou/uL (2.00-7.15); RED BLOOD COUNT 5.46 mill/uL (4.20-5.60)
[2022-09-08 15:04] LABS: ALBUMIN 4.1 g/dL (3.2-5.0); ALKALINE PHOSPHATASE 75 u/l (38-126); ANION GAP 12 (6-22 (CALC)); BILIRUBIN, TOTAL 0.5 mg/dL (0.0-1.4); BUN 32 mg/dL (8-23); BUN/CREATININE RATIO 35 (12-20 (CALC)); CHLORIDE 101 mmol/l (95-108); CREATININE 0.9 mg/dL (0.5-1.0); GFR FOR AFR.AMER. > 60 ML/MIN (>=60 (CALC)); GFR OTHER RACES > 60 ML/MIN (>=60 (CALC)); POTASSIUM 4.9 mmol/l (3.5-5.1); SGOT/AST 35 u/l (9-36); SODIUM 141 mmol/l (137-146); TOTAL PROTEIN 7.4 g/dL (6.3-8.2)
[2022-09-08] MEDS ORDERED: [UNRECOGNIZED DRUG - OTHER] PO (15:11)
[2022-09-08] MEDS ORDERED: FUROSEMIDE20 MG PO (15:12)
[2022-09-08] MEDS ORDERED: MIRTAZAPINE15 MG PO (15:13)
[2022-09-08 15:15] LABS: CARBON DIOXIDE 33 mmol/l (22-30)
[2022-09-09] VITALS (8 sets, daily range): BP systolic 140–174; BP diastolic 66–80
[2022-09-10] VITALS (12 sets, daily range): BP systolic 123–197; BP diastolic 51–82
[2022-09-10 05:45] LABS: HEMOGLOBIN 15.3 g/dl (12.0-16.0); IMMATURE GRANULOCYTES 0.1 % (0.0-5.0); MEAN CELL VOLUME 89.7 fL CALC (80.0-100.0); MEAN CORPUSCULAR HGB CONC 31.2 g/dL CAL (32.0-36.0); NEUT# 7.42 thou/uL (2.00-7.15); RED BLOOD COUNT 5.46 mill/uL (4.20-5.60); RED CELL DISTRI WIDTH 14.9 % (11.5-15.5)
[2022-09-10 06:05] LABS: ANION GAP 12 (6-22 (CALC)); BUN 36 mg/dL (8-23); BUN/CREATININE RATIO 41 (12-20 (CALC)); CARBON DIOXIDE 28 mmol/l (22-30); CHLORIDE 106 mmol/l (95-108); CREATININE 0.9 mg/dL (0.5-1.0); GFR FOR AFR.AMER. > 60 ML/MIN (>=60 (CALC)); GFR OTHER RACES > 60 ML/MIN (>=60 (CALC)); POTASSIUM 4.6 mmol/l (3.5-5.1); SODIUM 142 mmol/l (137-146)
[2022-09-11] VITALS (7 sets, daily range): BP systolic 130–177; BP diastolic 60–78
[2022-09-11 05:03] LABS: HEMATOCRIT 49.6 % (37.0-47.0); HEMOGLOBIN 15.2 g/dl (12.0-16.0); IMMATURE GRANULOCYTES 0.4 % (0.0-5.0); MEAN CELL VOLUME 91.2 fL CALC (80.0-100.0); MEAN CORPUSCULAR HGB 27.9 pG CALC (26.0-32.0); MEAN CORPUSCULAR HGB CONC 30.6 g/dL CAL (32.0-36.0); NEUT# 7.43 thou/uL (2.00-7.15); RED BLOOD COUNT 5.44 mill/uL (4.20-5.60); RED CELL DISTRI WIDTH 15.1 % (11.5-15.5)
[2022-09-11 05:40] LABS: ANION GAP 11 (6-22 (CALC)); BUN 35 mg/dL (8-23); BUN/CREATININE RATIO 44 (12-20 (CALC)); CARBON DIOXIDE 28 mmol/l (22-30); CHLORIDE 108 mmol/l (95-108); CREATININE 0.8 mg/dL (0.5-1.0); GFR FOR AFR.AMER. > 60 ML/MIN (>=60 (CALC)); GFR OTHER RACES > 60 ML/MIN (>=60 (CALC)); MAGNESIUM 2.1 mg/dL (1.6-2.3); SODIUM 143 mmol/l (137-146)
[2022-09-12] VITALS (7 sets, daily range): BP systolic 137–166; BP diastolic 59–73
[2022-09-12] MEDS ORDERED: PREDNISONE10 MG PO (10:46)
[2022-09-12] MEDS ORDERED: IPRATROPIU0.5 MG/3 M NEB (10:46)
[2022-09-13] VITALS (7 sets, daily range): BP systolic 129–165; BP diastolic 59–72
[2022-09-13 05:49] LABS: HEMATOCRIT 46.2 % (37.0-47.0); HEMOGLOBIN 14.4 g/dl (12.0-16.0); IMMATURE GRANULOCYTES 0.2 % (0.0-5.0); MEAN CELL VOLUME 89.5 fL CALC (80.0-100.0); MEAN CORPUSCULAR HGB 27.9 pG CALC (26.0-32.0); MEAN CORPUSCULAR HGB CONC 31.2 g/dL CAL (32.0-36.0); NEUT# 3.75 thou/uL (2.00-7.15); RED BLOOD COUNT 5.16 mill/uL (4.20-5.60)
[2022-09-13 05:53] LABS: ALKALINE PHOSPHATASE 60 u/l (38-126); ANION GAP 9 (6-22 (CALC)); BILIRUBIN, TOTAL 0.3 mg/dL (0.0-1.4); BUN 33 mg/dL (8-23); BUN/CREATININE RATIO 35 (12-20 (CALC)); CARBON DIOXIDE 28 mmol/l (22-30); CHLORIDE 105 mmol/l (95-108); CREATININE 0.9 mg/dL (0.5-1.0); GFR FOR AFR.AMER. > 60 ML/MIN (>=60 (CALC)); GFR OTHER RACES > 60 ML/MIN (>=60 (CALC)); POTASSIUM 3.8 mmol/l (3.5-5.1); SGOT/AST 29 u/l (9-36); SODIUM 139 mmol/l (137-146)
[2022-09-13 06:01] LABS: TOTAL PROTEIN 5.8 g/dL (6.3-8.2)
[2022-09-14 03:45] VITALS: BP 172/71
== END 2022-09-14 08:55 | DRG 192 ==
LOC: ED 14:09 → ED-I 15:40 → ED 15:57 → MS2 15:57
PROVIDERS: Emergency Medicine; Internal Medicine; Nurse Practitioner Family; ADMIT Internal Medicine; ATTEND Internal Medicine
DX: J44.1 Chronic obstructive pulmonary disease with (acute) exacerbation (principal); R09.02 Hypoxemia; I10 Essential (primary) hypertension; K21.9 Gastro-esophageal reflux disease without esophagitis; I73.9 Peripheral vascular disease, unspecified; F41.9 Anxiety disorder, unspecified; G47.00 Insomnia, unspecified; K44.9 Diaphragmatic hernia without obstruction or gangrene; Z99.81 Dependence on supplemental oxygen; Z86.16 Personal history of COVID-19; Z87.440 Personal history of urinary (tract) infections; Z20.822 Contact with and (suspected) exposure to COVID-19
CPT/HCPCS: J1650

== ENCOUNTER 2022-11-04 05:16 | Emergency (ER) | payer MEDICARE ==
[~2022-11-04] VITALS: Ht 165.1 cm; Wt 50.0 kg
[~2022-11-04 05:16] MED LIST changes: +IPRATROPIU0.5 MG/3 M NEB; +MIRTAZAPINE15 MG PO; +PREDNISONE10 MG PO; +[UNRECOGNIZED DRUG - OTHER] PO
[2022-11-04 06:07] LABS: BASO% 0.7 % (0-3); EOS% 1.7 % (0-8); HEMATOCRIT 46.3 % (37.0-47.0); HEMOGLOBIN 14.8 g/dl (12.0-16.0); LYMPH% 22.2 % (15-41); MEAN CELL VOLUME 93.2 fL CALC (80.0-100.0); MEAN CORPUSCULAR HGB 29.8 pG CALC (26.0-32.0); MONO% 5.8 % (2-13); NEUT# 4.11 thou/uL (2.00-7.15); NEUT% 69.6 % (42-76); RED BLOOD COUNT 4.97 mill/uL (4.20-5.60); RED CELL DISTRI WIDTH 16.5 % (11.5-15.5)
[2022-11-04 06:23] LABS: ALKALINE PHOSPHATASE 73 u/l (38-126); ANION GAP 8 (6-22 (CALC)); BUN 22 mg/dL (8-23); BUN/CREATININE RATIO 20 (12-20 (CALC)); CARBON DIOXIDE 30 mmol/l (22-30); CHLORIDE 107 mmol/l (95-108); CREATININE 1.1 mg/dL (0.5-1.0); GFR FOR AFR.AMER. 58 ML/MIN (>=60 (CALC)); GFR OTHER RACES 48 ML/MIN (>=60 (CALC)); POTASSIUM 3.6 mmol/l (3.5-5.1); SGOT/AST 25 u/l (9-36); SODIUM 142 mmol/l (137-146); TOTAL PROTEIN 6.9 g/dL (6.3-8.2)
[2022-11-04 06:24] LABS: ALBUMIN 3.8 g/dL (3.2-5.0); BILIRUBIN, TOTAL 0.8 mg/dL (0.0-1.4)
[2022-11-04 14:30] VITALS: BP 147/69
== END 2022-11-04 14:32 | disposition home or self-care (01) ==
LOC: ED 05:16
PROVIDERS: Emergency Medicine
DX: J44.1 Chronic obstructive pulmonary disease with (acute) exacerbation (principal); I10 Essential (primary) hypertension; I73.9 Peripheral vascular disease, unspecified; Z59.89 Other problems related to housing and economic circumstances; Z99.81 Dependence on supplemental oxygen; Z86.16 Personal history of COVID-19
CPT/HCPCS: Q9967

== ENCOUNTER 2022-11-17 13:06 | Inpatient (IN) | payer MEDICARE ==
[2022-11-17] VITALS (25 sets, daily range): BP systolic 117–170; BP diastolic 63–115
[~2022-11-17] VITALS: Ht 165.1 cm; Wt 50.8 kg
[2022-11-17 15:00] LABS: BASO% 0.4 % (0-3); EOS% 0.5 % (0-8); HEMATOCRIT 46.9 % (37.0-47.0); HEMOGLOBIN 14.9 g/dl (12.0-16.0); IMMATURE GRANULOCYTES 0.4 % (0.0-5.0); LYMPH% 17.5 % (15-41); MEAN CELL VOLUME 91.6 fL CALC (80.0-100.0); MEAN CORPUSCULAR HGB 29.1 pG CALC (26.0-32.0); MEAN CORPUSCULAR HGB CONC 31.8 g/dL CAL (32.0-36.0); MONO% 5.9 % (2-13); NEUT# 6.01 thou/uL (2.00-7.15); NEUT% 75.3 % (42-76); RED BLOOD COUNT 5.12 mill/uL (4.20-5.60); RED CELL DISTRI WIDTH 15.1 % (11.5-15.5)
[2022-11-17 15:16] LABS: ALKALINE PHOSPHATASE 86 u/l (38-126); ANION GAP 9 (6-22 (CALC)); BILIRUBIN, TOTAL 0.5 mg/dL (0.0-1.4); BUN 27 mg/dL (8-23); BUN/CREATININE RATIO 25 (12-20 (CALC)); CARBON DIOXIDE 30 mmol/l (22-30); CHLORIDE 103 mmol/l (95-108); CREATININE 1.1 mg/dL (0.5-1.0); GFR FOR AFR.AMER. 58 ML/MIN (>=60 (CALC)); GFR OTHER RACES 48 ML/MIN (>=60 (CALC)); SGOT/AST 25 u/l (9-36); SODIUM 138 mmol/l (137-146); TOTAL PROTEIN 7.3 g/dL (6.3-8.2)
[2022-11-18 04:25] VITALS: BP 155/76
[2022-11-18 07:08] VITALS: BP 132/65
[2022-11-18 10:40] VITALS: BP 144/66
[2022-11-18 14:27] VITALS: BP 140/64
[2022-11-18 19:00] VITALS: BP 156/74
[2022-11-19 05:27] LABS: BASO% 0.1 % (0-3); HEMATOCRIT 44.1 % (37.0-47.0); HEMOGLOBIN 14.1 g/dl (12.0-16.0); IMMATURE GRANULOCYTES 0.4 % (0.0-5.0); LYMPH% 6.1 % (15-41); MEAN CORPUSCULAR HGB 30.1 pG CALC (26.0-32.0); MONO% 1.8 % (2-13); NEUT# 10.67 thou/uL (2.00-7.15); NEUT% 91.6 % (42-76); RED BLOOD COUNT 4.69 mill/uL (4.20-5.60); RED CELL DISTRI WIDTH 14.9 % (11.5-15.5)
[2022-11-19 05:37] LABS: ALBUMIN 3.4 g/dL (3.2-5.0); CREATININE 1.1 mg/dL (0.5-1.0); POTASSIUM 4.7 mmol/l (3.5-5.1); TOTAL PROTEIN 6.4 g/dL (6.3-8.2)
[2022-11-19 05:49] LABS: BILIRUBIN, TOTAL 0.1 mg/dL (0.0-1.4)
[2022-11-20 11:58] VITALS: BP 156/83
[2022-11-20 18:16] VITALS: BP 156/72
[2022-11-21] VITALS (7 sets, daily range): BP systolic 140–176; BP diastolic 68–77
[2022-11-21 06:29] LABS: BASO% 0.1 % (0-3); HEMATOCRIT 47.1 % (37.0-47.0); HEMOGLOBIN 15.2 g/dl (12.0-16.0); IMMATURE GRANULOCYTES 0.3 % (0.0-5.0); LYMPH% 8.2 % (15-41); MEAN CELL VOLUME 92.7 fL CALC (80.0-100.0); MEAN CORPUSCULAR HGB 29.9 pG CALC (26.0-32.0); MEAN CORPUSCULAR HGB CONC 32.3 g/dL CAL (32.0-36.0); MONO% 1.6 % (2-13); NEUT# 10.3 thou/uL (2.00-7.15); NEUT% 89.8 % (42-76); RED BLOOD COUNT 5.08 mill/uL (4.20-5.60); RED CELL DISTRI WIDTH 14.8 % (11.5-15.5)
[2022-11-21 06:48] LABS: ALBUMIN 3.2 g/dL (3.2-5.0); CREATININE 1.4 mg/dL (0.5-1.0); POTASSIUM 4.2 mmol/l (3.5-5.1); TOTAL PROTEIN 6.2 g/dL (6.3-8.2)
[2022-11-21 07:02] LABS: BILIRUBIN, TOTAL 0.2 mg/dL (0.0-1.4)
[2022-11-22 00:41] VITALS: BP 147/71
[2022-11-22 04:09] VITALS: BP 133/61
[2022-11-22 06:35] LABS: ANION GAP 10 (6-22 (CALC)); BUN 45 mg/dL (8-23); BUN/CREATININE RATIO 44 (12-20 (CALC)); CARBON DIOXIDE 26 mmol/l (22-30); CHLORIDE 106 mmol/l (95-108); GFR FOR AFR.AMER. > 60 ML/MIN (>=60 (CALC)); GFR OTHER RACES 54 ML/MIN (>=60 (CALC)); MAGNESIUM 2.2 mg/dL (1.6-2.3); POTASSIUM 4.3 mmol/l (3.5-5.1); SODIUM 138 mmol/l (137-146)
[2022-11-22 10:56] VITALS: BP 159/67
[2022-11-22 16:08] VITALS: BP 143/68
[2022-11-22 19:22] VITALS: BP 134/65
[2022-11-22 23:50] VITALS: BP 161/67
[2022-11-23 04:07] VITALS: BP 126/50
[2022-11-23 06:10] VITALS: BP 154/68
[2022-11-23 06:11] LABS: BILIRUBIN, TOTAL 0.2 mg/dL (0.0-1.4); CREATININE 1.1 mg/dL (0.5-1.0); MAGNESIUM 2.3 mg/dL (1.6-2.3); POTASSIUM 4.2 mmol/l (3.5-5.1); TOTAL PROTEIN 5.8 g/dL (6.3-8.2)
[2022-11-23 06:16] LABS: BASO% 0.1 % (0-3); HEMATOCRIT 45.6 % (37.0-47.0); HEMOGLOBIN 14.9 g/dl (12.0-16.0); IMMATURE GRANULOCYTES 0.5 % (0.0-5.0); LYMPH% 10.1 % (15-41); MEAN CELL VOLUME 91.6 fL CALC (80.0-100.0); MEAN CORPUSCULAR HGB 29.9 pG CALC (26.0-32.0); MEAN CORPUSCULAR HGB CONC 32.7 g/dL CAL (32.0-36.0); MONO% 1.4 % (2-13); NEUT# 7.62 thou/uL (2.00-7.15); NEUT% 87.9 % (42-76); RED BLOOD COUNT 4.98 mill/uL (4.20-5.60)
[2022-11-23 11:12] VITALS: BP 136/60
[2022-11-23 14:22] VITALS: BP 136/62
[2022-11-23 19:06] VITALS: BP 115/53
[2022-11-23 21:29] VITALS: BP 140/68
[2022-11-24 00:14] VITALS: BP 150/65
[2022-11-24 04:44] VITALS: BP 133/51
[2022-11-24 05:50] LABS: BASO% 0.1 % (0-3); HEMATOCRIT 47.9 % (37.0-47.0); HEMOGLOBIN 15.2 g/dl (12.0-16.0); IMMATURE GRANULOCYTES 0.5 % (0.0-5.0); LYMPH% 10.5 % (15-41); MEAN CORPUSCULAR HGB 29.5 pG CALC (26.0-32.0); MEAN CORPUSCULAR HGB CONC 31.7 g/dL CAL (32.0-36.0); MONO% 1.5 % (2-13); NEUT# 7.65 thou/uL (2.00-7.15); NEUT% 87.4 % (42-76); RED BLOOD COUNT 5.15 mill/uL (4.20-5.60); RED CELL DISTRI WIDTH 14.8 % (11.5-15.5)
[2022-11-24 06:06] LABS: ALBUMIN 2.9 g/dL (3.2-5.0); ALKALINE PHOSPHATASE 57 u/l (38-126); ANION GAP 10 (6-22 (CALC)); BILIRUBIN, TOTAL 0.2 mg/dL (0.0-1.4); BUN 46 mg/dL (8-23); BUN/CREATININE RATIO 50 (12-20 (CALC)); CARBON DIOXIDE 26 mmol/l (22-30); CHLORIDE 109 mmol/l (95-108); CREATININE 0.9 mg/dL (0.5-1.0); GFR FOR AFR.AMER. > 60 ML/MIN (>=60 (CALC)); GFR OTHER RACES > 60 ML/MIN (>=60 (CALC)); MAGNESIUM 2.3 mg/dL (1.6-2.3); POTASSIUM 4.8 mmol/l (3.5-5.1); SGOT/AST 24 u/l (9-36); SODIUM 140 mmol/l (137-146); TOTAL PROTEIN 5.6 g/dL (6.3-8.2)
[2022-11-24 06:27] VITALS: BP 169/87
[2022-11-24 10:11] VITALS: BP 166/74
[2022-11-24] MEDS ORDERED: PREDNISONE10 MG PO (12:27)
[2022-11-24 14:21] VITALS: BP 132/61
== END 2022-11-24 17:21 | DRG 190 ==
LOC: ED 13:06 → ED-I 18:55 → ED 19:08 → MS2 19:09 → ICU 19:09 → MS2 11-20 11:23
PROVIDERS: Family Medicine; Internal Medicine; Nurse Practitioner Family; ADMIT Internal Medicine; ATTEND Internal Medicine
PROC: 5A09457 Assistance with Respiratory Ventilation, 24-96 Consecutive Hours, Continuous Positive Airway Pressure (ICD-10-PCS; principal; 2022-11-18)
DX: J43.9 Emphysema, unspecified (principal); J96.21 Acute and chronic respiratory failure with hypoxia; J96.22 Acute and chronic respiratory failure with hypercapnia; I10 Essential (primary) hypertension; I25.10 Atherosclerotic heart disease of native coronary artery without angina pectoris; I73.9 Peripheral vascular disease, unspecified; F41.9 Anxiety disorder, unspecified; K21.9 Gastro-esophageal reflux disease without esophagitis; K44.9 Diaphragmatic hernia without obstruction or gangrene; R91.8 Other nonspecific abnormal finding of lung field; F17.200 Nicotine dependence, unspecified, uncomplicated; Z87.440 Personal history of urinary (tract) infections; Z86.16 Personal history of COVID-19; Z99.81 Dependence on supplemental oxygen; Z20.822 Contact with and (suspected) exposure to COVID-19
CPT/HCPCS: J1650; Q9967

== ENCOUNTER 2022-11-30 19:10 | Observation (INO) | payer MEDICARE ==
[~2022-11-30] VITALS: Ht 165.1 cm; Wt 49.6 kg
[2022-11-30 21:02] VITALS: BP 121/68
[2022-12-01 00:41] VITALS: BP 145/61
[2022-12-01 04:34] VITALS: BP 150/63
[2022-12-01 06:42] LABS: ALKALINE PHOSPHATASE 56 u/l (38-126); ANION GAP 7 (6-22 (CALC)); BUN 30 mg/dL (8-23); BUN/CREATININE RATIO 36 (12-20 (CALC)); CARBON DIOXIDE 27 mmol/l (22-30); CHLORIDE 110 mmol/l (95-108); CREATININE 0.9 mg/dL (0.5-1.0); GFR FOR AFR.AMER. > 60 ML/MIN (>=60 (CALC)); GFR OTHER RACES > 60 ML/MIN (>=60 (CALC)); POTASSIUM 4.1 mmol/l (3.5-5.1); SGOT/AST 30 u/l (9-36); SODIUM 140 mmol/l (137-146); TOTAL PROTEIN 5.6 g/dL (6.3-8.2)
[2022-12-01 06:48] LABS: HEMATOCRIT 44.8 % (37.0-47.0); HEMOGLOBIN 14.1 g/dl (12.0-16.0); IMMATURE GRANULOCYTES 0.3 % (0.0-5.0); LYMPH% 9.5 % (15-41); MEAN CELL VOLUME 91.8 fL CALC (80.0-100.0); MEAN CORPUSCULAR HGB 28.9 pG CALC (26.0-32.0); MEAN CORPUSCULAR HGB CONC 31.5 g/dL CAL (32.0-36.0); MONO% 3.1 % (2-13); NEUT# 7.51 thou/uL (2.00-7.15); NEUT% 87.1 % (42-76); RED BLOOD COUNT 4.88 mill/uL (4.20-5.60); RED CELL DISTRI WIDTH 14.7 % (11.5-15.5)
[2022-12-01 06:49] LABS: BILIRUBIN, TOTAL 0.4 mg/dL (0.0-1.4)
[2022-12-01 11:31] VITALS: BP 137/63
[2022-12-01 11:32] VITALS: BP 137/63
[2022-12-01 15:39] VITALS: BP 135/75
[2022-12-01 19:14] VITALS: BP 126/69
[2022-12-02] VITALS: BP 123/59
[2022-12-02 04:54] VITALS: BP 136/57
[2022-12-02 07:56] VITALS: BP 123/51
[2022-12-02 11:45] VITALS: BP 108/48
== END 2022-12-02 14:09 | disposition hospice, home (50) ==
LOC: MS2 19:10
PROVIDERS: Nurse Practitioner Family; ADMIT Internal Medicine; ATTEND Internal Medicine
DX: J44.1 Chronic obstructive pulmonary disease with (acute) exacerbation (principal); J96.21 Acute and chronic respiratory failure with hypoxia; R64 Cachexia; I12.9 Hypertensive chronic kidney disease with stage 1 through stage 4 chronic kidney disease, or unspecified chronic kidney disease; N18.30 Chronic kidney disease, stage 3 unspecified; D63.1 Anemia in chronic kidney disease; I25.10 Atherosclerotic heart disease of native coronary artery without angina pectoris; K44.9 Diaphragmatic hernia without obstruction or gangrene; K21.9 Gastro-esophageal reflux disease without esophagitis; I73.9 Peripheral vascular disease, unspecified; F17.200 Nicotine dependence, unspecified, uncomplicated; Z66 Do not resuscitate; Z51.5 Encounter for palliative care; Z68.1 Body mass index [BMI] 19.9 or less, adult; Z86.16 Personal history of COVID-19; Z79.02 Long term (current) use of antithrombotics/antiplatelets; Z87.440 Personal history of urinary (tract) infections
CPT/HCPCS: J1650